=== PATIENT | male | born 1960 | race Caucasian/White ===

== ENCOUNTER 2024-07-22 16:42 | Inpatient (IN) | payer MEDICARE, SELFPAY ==
[2024-07-22] VITALS (12 sets, daily range): BP systolic 177–200; BP diastolic 95–123; PULSE 61–103; RESP 20–32; TEMP 37.2–37.7; O2SAT 93–98; BMI 25.8
--- NOTE | 2024-07-22 16:44 | ECG_ITS ---
APPROVED REPORT Exam: Resting ECG HR:79 bpm ECG Measurements Heart Rate 79 AXES FL 145 P 83 QRSd 93 QRS 90 QT 348 T 26 QTc 383 Conclusion Sinus rhythm No acute ischemic change Electronically signed by : ROCIO FLORES, 07/24/2024 12:20:44
--- NOTE | 2024-07-22 16:55 | CT_ITS ---
PROCEDURE INFORMATION: Exam: CTA Neck With Contrast Exam date and time: 07/22/2024 4:59 PM Age: 64 years old Clinical indication: Speech disturbance; Additional info: Stroke alert slurred speech TECHNIQUE: Imaging protocol: Computed tomographic angiography of the neck with contrast. Exam focused on the cervical segments of the vasculature. 3D rendering (Not supervised by radiologist): MIP and/or 3D reconstructed images were created by the technologist. Radiation optimization: All CT scans at this facility use at least one of these dose optimization techniques: automated exposure control; mA and/or kV adjustment per patient size (includes targeted exams where dose is matched to clinical indication); or iterative reconstruction. Contrast material: ISOVUE 370; Contrast volume: 80 ml; Contrast route: INTRAVENOUS (IV); COMPARISON: CT ANGIO NECK 07/22/2024 4:59 PM FINDINGS: Right common carotid artery: No stenosis. No dissection or occlusion. Right internal carotid artery: No stenosis of the extracranial segment. No dissection or occlusion. Right external carotid artery: No occlusion or stenosis of the origin. Left common carotid artery: No stenosis. No dissection or occlusion. Left internal carotid artery: No stenosis of the extracranial segment. No dissection or occlusion. Left external carotid artery: No occlusion or stenosis of the origin. Right vertebral artery: No stenosis. No dissection or occlusion. Left vertebral artery: No stenosis. No dissection or occlusion. Soft tissues: Normal. No significant soft tissue swelling. Bones/joints: No acute fracture. IMPRESSION: No hemodynamically significant extracranial cerebrovascular stenosis or occlusion. REFERENCES: NASCET CRITERIA. The degree of stenosis in the cervical segment of the internal carotid artery is based on NASCET criteria. Normal is no stenosis. Mild is less than 50% stenosis. Moderate is 50-69% stenosis. Severe is 70% to 99% stenosis. Total occlusion is no detectable patent lumen.
--- NOTE | 2024-07-22 16:57 | CT_ITS ---
PROCEDURE INFORMATION: Exam: CT Head Without Contrast Exam date and time: 07/22/2024 4:57 PM Age: 64 years old Clinical indication: Stroke-like symptoms; Altered mental status/memory loss TECHNIQUE: Imaging protocol: Computed tomography of the head without contrast. Radiation optimization: All CT scans at this facility use at least one of these dose optimization techniques: automated exposure control; mA and/or kV adjustment per patient size (includes targeted exams where dose is matched to clinical indication); or iterative reconstruction. Other technique: STROKE PROTOCOL was implemented. COMPARISON: No relevant prior studies available. FINDINGS: Brain: Remote lacunar infarct left basal ganglia. Periventricular and subcortical small vessel ischemic changes appear chronic. Mild atrophy associated. No acute hemorrhage, mass effect, midline shift, or extra-axial fluid collection. Cerebral ventricles: No ventriculomegaly. Paranasal sinuses: Visualized sinuses are unremarkable. No fluid levels. Mastoid air cells: Visualized mastoid air cells are well aerated. Bones: Unremarkable. No acute fracture. Soft tissues: Unremarkable. IMPRESSION: 1. Remote lacunar infarct left basal ganglia. 2. Mild cerebral atrophy. ASSESSMENT: ASPECTS ([facility] Stroke Program Early CT Score) is 10.
--- NOTE | 2024-07-22 16:57 | CT_ITS ---
PROCEDURE INFORMATION: Exam: CTA Head With Contrast, Arteriography Exam date and time: 07/22/2024 4:59 PM Age: 64 years old Clinical indication: Memory loss; Additional info: Stroke, AMS, slurredspeech TECHNIQUE: Imaging protocol: Computed tomographic angiography of the head with contrast. Exam focused on the arteries. 3D rendering (Not supervised by radiologist): MIP and/or 3D reconstructed images were created by the technologist. Radiation optimization: All CT scans at this facility use at least one of these dose optimization techniques: automated exposure control; mA and/or kV adjustment per patient size (includes targeted exams where dose is matched to clinical indication); or iterative reconstruction. Contrast material: ISOVUE 370; Contrast volume: 80 ml; Contrast route: INTRAVENOUS (IV); COMPARISON: CT HEAD/BRAIN WO CON 07/22/2024 4:57 PM FINDINGS: ANTERIOR CIRCULATION: Right internal carotid artery: Intracranial segment is patent with no significant stenosis. No aneurysm. Right middle cerebral artery: No occlusion or significant stenosis. No aneurysm. Right anterior cerebral artery: No occlusion or significant stenosis. No aneurysm. Left internal carotid artery: Intracranial segment is patent with no significant stenosis. No aneurysm. Left middle cerebral artery: No occlusion or significant stenosis. No aneurysm. Left anterior cerebral artery: No occlusion or significant stenosis. No aneurysm. POSTERIOR CIRCULATION: Right vertebral artery: No occlusion or significant stenosis. No aneurysm. Left vertebral artery: No occlusion or significant stenosis. No aneurysm. Basilar artery: No occlusion or significant stenosis. No aneurysm. Right posterior cerebral artery: No occlusion or significant stenosis. No aneurysm. Left posterior cerebral artery: No occlusion or significant stenosis. No aneurysm. Brain: No definite mass, mass effect, or midline shift. Cerebral ventricles: No ventriculomegaly. Bones/joints: Unremarkable. No acute fracture. Soft tissues: Unremarkable. IMPRESSION: No large vessel stenosis or occlusion.
[2024-07-22] MEDS: IOPAMIDOL-370 (76%);100ML BOTTLE 80 ML IV (17:09)
[2024-07-22] MEDS: 0.9 % SODIUM CHLORIDE 50 ML VIAL 10 ML IV (17:10)
[2024-07-22] MEDS: SODIUM CHLORIDE 0.9% 10ML SYR (RAD ONLY) 10 ML IV (17:10)
--- NOTE | 2024-07-22 17:19 | [facility].EDCP ---
Discharge Plan Disposition Patient Disposition: Admitted Condition: Fair Clinical Impressions Clinical Impression: Asthenia, Elevated troponin I level, Elevated brain natriuretic peptide (BNP) level, [place] (acute kidney injury) Discharge ED Provider: Pablo Lugo HPI <BETO Preciado - Last Filed: 07/22/24 22:07> General Chief Complaint: Neuro Symptoms/Deficit Stated Complaint: Poss CVA Time Seen by Provider: 07/22/24 17:19 History of Present Illness HPI narrative: Patient presents for evaluation of weakness. According to patient's he has had a progressive decline going on for the past year primarily with a shuffling gait and multiple falls. Over the last week he has fallen more more to the point where he is too weak to get out of bed. He is unable to stand unassisted currently. 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 Patient himself is oriented to person place and circumstance and reports weakness but denies chest pain shortness of breath fever chills hemoptysis hematochezia melena nausea vomiting diarrhea. Related Data Home Medications ?Medication ?Instructions ?Recorded ?Confirmed No Known Home Medications 07/22/24 07/22/24 Allergies Allergy/AdvReac Type Severity Reaction Status Date / Time No Known Allergies Allergy Verified 07/22/24 16:55 PFSH <BETO Preciado - Last Filed: 07/22/24 22:07> PFS Disclaimer: The information contained in this section may have been updated after the patient was seen, as this information can be updated by other users. Medical History (Updated 07/23/24 @ 16:07 by Octavio Jose MD) No significant past medical history Social History (Updated 07/22/24 @ 22:36 by Arely Fuller RN) Smoking Status: Current every day smoker tobacco type: cigarettes packs per day: 1 years smoked: 35 alcohol intake: never current occupational status: unemployed Travel in the last 8 weeks: None household members: spouse marital status: <BETO Preciado Last Filed: 07/22/24 22:07> ROS Obtained: Yes Systems reviewed as appropriate & no additional complaints except as documented Physical Exam <BETO Preciado Last Filed: 07/22/24 22:07> General General appearance: alert and in no apparent distress Respiratory Respiratory exam: Present normal lung sounds bilaterally Cardiovascular Cardiovascular exam: Present regular rate and +S2 Neurological Exam Neurological exam: Present alert, oriented X3 and CN II-XII intact; Absent motor sensory deficit HEART Score <BETO Preciado - Last Filed: 07/22/24 22:07> HEART Score HEART Score assessment performed?: Yes History (anamnesis): Slightly suspicious ECG: Normal Age: >65 years Risk factors: 1-2 risk factors Troponin: 1-3x normal limit HEART Score: 4 <Pablo Lugo MD - Last Filed: 07/24/24 07:18> HEART Score HEART Score: 4 Critical Care <BETO Preciado - Last Filed: 07/22/24 22:07> Critical Care Time Critical Care Time: Yes Attestation: On 07/22/24, the high probability of a clinically significant, sudden or life threatening deterioration of the following system(s) required my full and direct attention, intervention and personal management. The time I documented below is in addition to time spent performing reported procedures but includes the following listed in this critical care notation. Total Time Total Critical Care Time: 35 Medical Decision Making <BETO Preciado - Last Filed: 07/22/24 22:07> Medical Records Medical records reviewed: Yes I reviewed the patient's medical records. Herbert Inquiry Pt receiving controlled substance: No Vital Signs Vital Signs: 07/22/24 16:45 07/22/24 17:10 07/22/24 17:11 Temperature 99.9 F H Temperature Source Oral Pulse Rate 70 61 Pulse Rate [Right] 95 H Respiratory Rate 20 22 Blood Pressure 199/106 H 198/95 H Blood Pressure [Right Arm] 200/116 H Blood Pressure Mean [Right Arm] 144 Blood Pressure Source Blood Pressure Source [Right Arm] Manual Cuff/ Auscultation Blood Pressure Position 02 Sat by Pulse Oximetry 96 95 96 Oxygen Delivery Method Room Air Room Air Room Air 07/22/24 17:30 07/22/24 18:00 07/22/24 18:30 Temperature Temperature Source Pulse Rate 99 H 99 H 103 H Pulse Rate [Right] Respiratory Rate 29 H 29 H 28 H Blood Pressure 189/119 H 187/123 H 183/118 H Blood Pressure [Right Arm] Blood Pressure Mean [Right Arm] Blood Pressure Source Blood Pressure Source [Right Arm] Blood Pressure Position 02 Sat by Pulse Oximetry 95 94 L 95 Oxygen Delivery Method Room Air 07/22/24 19:00 07/22/24 19:30 07/22/24 20:00 Temperature Temperature Source Pulse Rate 67 102 H 62 Pulse Rate [Right] Respiratory Rate 32 H 20 30 H Blood Pressure 192/108 H 186/120 H 177/103 H Blood Pressure [Right Arm] Blood Pressure Mean [Right Arm] Blood Pressure Source Blood Pressure Source [Right Arm] Blood Pressure Position 02 Sat by Pulse Oximetry 93 L 96 98 Oxygen Delivery Method 07/22/24 20:07 07/22/24 20:15 Temperature 98.9 F Temperature Source Oral Pulse Rate 67 Pulse Rate [Right] 62 Respiratory Rate 20 Blood Pressure 177/103 H Blood Pressure [Right Arm] Blood Pressure Mean [Right Arm] Blood Pressure Source Automatic Cuff Blood Pressure Source [Right Arm] Blood Pressure Position Supine 02 Sat by Pulse Oximetry Oxygen Delivery Method Room Air Room Air Lab Data Lab results reviewed: Yes I reviewed the patient's lab results. Labs: Lab Results 07/22/24 16:50: WBC 5.4, RBC 6.23 H, Hgb 18.6 H, Hct 53.7 H, MCV 86.2, MCH 29.9, MCHC 34.6, RDW 14.5, Plt Count 119 L, MPV 11.9 H, Neut % (Auto) 75.1, Lymph % (Auto) 9.5 L, Davison % (Auto) 14.6 H, Eos % (Auto) 0.0 L, Baso % (Auto) 0.4, Neut # (Auto) 4.0, Lymph # (Auto) 0.5 L, Davison # (Auto) 0.8, Eos # (Auto) 0.0, Baso # (Auto) 0.0, ESR 1, PT 13.3 H, INR 1.21 H, Sodium 139, Potassium 3.9, Chloride 98, Carbon Dioxide 28, Anion Gap 16.9 H, BUN 24 H, Creatinine 1.60 H, Estimated GFR 43 L, Est GFR ( Amer) 53 L, Glucose 95, Calcium 9.6, Phosphorus 2.6, Magnesium 2.2, Total Bilirubin 1.0, AST 116 H, ALT 60, Alkaline Phosphatase 58, Total Creatine Kinase 4494 H*, Troponin I 0.05 H, C-Reactive Protein 69.0 H, NT-Pro-B Natriuret Pep 1990 H, Total Protein 7.7, Albumin 4.8, Globulin 2.9, Albumin/Globulin Ratio 1.7, Vitamin B12 381, Procalcitonin 0.552, TSH 1.27, Free T4 Index 2.2 L, Thyroxine (T4) 6.4, T3 Uptake 35, HCV Ab FELICITA w/Rflx PCR Qn Negative, HIV Ag/Ab Combo Qual Negative 07/22/24 17:38: Chlamy pneumoniae PCR Not detected, Adenovirus (PCR) Not detected, B. pertussis DNA (PCR) Not detected, Coronavirus OC43 (PCR) Not detected, Coronavirus HKU1 (PCR) Not detected, Coronavirus 229E (PCR) Not detected, SARS-CoV-2 (PCR) Not detected, Coronavirus NL63 (PCR) Not detected, Human Metapneumovir PCR Not detected, Influenza A (H1) PCR Not detected, Influ A (H1N1/09) PCR Not detected, Influenza A (H3) PCR Not detected, Influenza Type A (PCR) Not detected, Influenza Type B (PCR) Not detected, M. pneumoniae (PCR) Not detected, Parainfluenza 1 (PCR) Not detected, Parainfluenza 2 (PCR) Not detected, Parainfluenza 3 (PCR) Not detected, Parainfluenza 4 (PCR) Not detected, RSV (PCR) Not detected, Entero/Rhino (PCR) Not detected 07/22/24 18:56: Ammonia < 9 L 07/22/24 19:07: Urine Color Yellow, Urine Appearance Slightly cloudy, Urine pH 5.5, Ur Specific Lawrence 1.025, Urine Protein 30, Urine Glucose (UA) Negative, Urine Ketones Negative, Urine Blood Moderate, Urine Nitrate Negative, Urine Bilirubin Negative, Urine Urobilinogen 1.0, Ur Leukocyte Esterase Negative, Urine RBC None, Urine WBC Occasional, Ur Squamous Epith Cells Occasional, Urine Bacteria 1+, Ur Random Urea Nitrogn 1365, Urine Creatinine 263, Urine Sodium 56.0, Urine Total Protein 35.0 H 07/22/24 19:28: Urine Color Yellow, Urine Appearance Clear, Urine pH 5.5, Ur Specific Lawrence 1.020, Urine Protein 30, Urine Glucose (UA) Negative, Urine Ketones Negative, Urine Blood Moderate, Urine Nitrate Negative, Urine Bilirubin Negative, Urine Urobilinogen 2.0, Ur Leukocyte Esterase Negative, Urine RBC None, Urine WBC 3-5, Ur Squamous Epith Cells 3-5, Urine Bacteria 1+, Hyaline Casts 3-5, Fine Granular Casts Occasional, Urine Mucus 1+ 07/22/24 21:21: Folate 7.72 07/23/24 01:08: Troponin I 0.06 H 07/23/24 06:40: WBC 4.1 L, RBC 5.75, Hgb 16.8, Hct 48.5, MCV 84.3, MCH 29.2, MCHC 34.6, RDW 14.2, Plt Count 98 L, MPV 10.8 H, Neut % (Auto) 73.8, Lymph % (Auto) 9.8 L, Davison % (Auto) 15.5 H, Eos % (Auto) 0.0 L, Baso % (Auto) 0.7, Neut # (Auto) 3.0, Lymph # (Auto) 0.4 L, Davison # (Auto) 0.6, Eos # (Auto) 0.0, Baso # (Auto) 0.0, Retic Count (auto) 0.8 L, Sodium 135 L, Potassium 3.8, Chloride 104, Carbon Dioxide 22, Anion Gap 12.8, BUN 19, Creatinine 1.10 D, Estimated Creat Clear 74, Estimated GFR 67, Est GFR ( Amer) 81 D, Glucose 116 H D, Hemoglobin A1c 5.4, Calcium 9.1, Iron 29 L, TIBC 227 L, Iron Saturation 12.38825 L, Ferritin 3360 H, Troponin I 0.05 H, Triglycerides 129, Cholesterol 119 L, LDL Cholesterol Direct 63.80 L, VLDL Cholesterol 26, HDL Cholesterol 25 L, Cholesterol/HDL Ratio 4.8 H, Vitamin B12 358, Folate 7.84 07/23/24 07:20: Total Creatine Kinase 2380 H* D 07/23/24 06:40 07/23/24 06:40 Response Orders (Tests/Meds): ED MEDICATIONS Generic Name Dose Route Start Last Admin Trade Name Freq PRN Reason Stop Dose Admin Acetaminophen 650 mg 07/22/24 20:23 Acetaminophen 325mg Tab PO 08/21/24 20:22 Q4HP PRN Fever or Mild Pain (1-3) Aspirin 81 mg 07/23/24 09:00 07/23/24 08:33 Aspirin Ec 81mg Tablet PO 08/22/24 08:59 81 mg DAILY YEIMY Administration Atorvastatin Calcium 40 mg 07/23/24 21:00 07/23/24 20:16 Atorvastatin 40mg Tablet PO 08/22/24 20:59 40 mg HS YEIMY Administration Clopidogrel Bisulfate 75 mg 07/23/24 13:55 07/23/24 14:37 Clopidogrel 75mg Tab PO 08/22/24 13:54 75 mg DAILY YEIMY Administration Lactated Ringer's 1,000 mls @ 100 mls/hr 07/22/24 20:30 07/24/24 03:34 Lactated Ringer's 1000 Ml Bag IV 08/21/24 20:29 100 mls/hr .Q10H YEIMY Administration Irbesartan 75 mg 07/23/24 14:00 07/23/24 14:37 Irbesartan 75mg Tablet PO 08/22/24 13:59 75 mg DAILY YEIMY Administration Nicotine 21 mg 07/22/24 20:23 07/23/24 13:54 Nicotine 21mg/24hr Patch TD 08/21/24 20:22 21 mg DAILYP PRN Administration Nicotine Cravings Ondansetron HCl 4 mg 07/22/24 20:23 Ondansetron 4mg/2ml Vial IV 08/21/24 20:22 Q8HP PRN Nausea Sodium Chloride 10 ml 07/22/24 20:23 Sodium Chloride 0.9% 10ml Flush Syringe IV 08/21/24 20:22 NEEDED PRN Maintain IV Site Discontinued Medications Generic Name Dose Route Start Last Admin Trade Name Freq PRN Reason Stop Dose Admin Aspirin 325 mg 07/22/24 19:59 07/22/24 20:07 Aspirin 325mg Tablet PO 07/22/24 20:00 325 mg ONCE ONE Administration Clopidogrel Bisulfate 300 mg 07/22/24 19:59 07/22/24 20:07 Clopidogrel 300mg Tablet PO 07/22/24 20:00 300 mg ONCE ONE Administration Heparin Sodium (Porcine) 5,000 unit 07/22/24 21:00 07/23/24 12:15 Heparin Sodium 5,000 Unit/Ml Vial SUBCUT 08/21/24 20:59 5,000 unit TID YEIMY Administration Sodium Chloride 1,000 mls @ 999 mls/hr 07/22/24 17:23 07/22/24 18:04 Sod Chlor 0.9% 1000ml Bag IV 07/22/24 18:23 999 mls/hr .Q1H1M ONE Administration Iopamidol 80 ml 07/22/24 17:07 07/22/24 17:09 Iopamidol-370 (76%);100ml Bottle IV 07/22/24 17:08 80 ml ONCE ONE Administration Sodium Chloride 10 ml 07/22/24 17:10 07/22/24 17:10 0.9 % Sodium Chloride 50 Ml Vial IV 07/22/24 17:11 10 ml ONCE ONE Administration Sodium Chloride 10 ml 07/22/24 17:10 07/22/24 17:10 Sodium Chloride 0.9% 10ml Syr (Rad Only) IV 08/21/24 17:09 10 ml NEEDED PRN Administration Maintain IV Site ORDERS Category Date Time Status CT angio head Stat Cat Scan 07/22/24 16:[address] angio neck Stat Cat Scan 07/22/24 16:[address] head/brain wo con Stat Cat Scan 07/22/24 16:57 Completed Consult to Case Management [CONS] Routine Cons 07/22/24 20:18 Active Chest XR -- portable [XR chest portable] Stat Exams 07/22/24 20:17 Completed Ammonia Stat Lab 07/22/24 18:56 Completed BNP [NT Pro Brain Natriuretic Pep.] Stat Lab 07/22/24 16:50 Completed Basic Metabolic Panel AMLAB Lab 07/23/24 06:40 Completed Basic Metabolic Panel AMLAB Lab 07/24/24 06:50 Received Basic Metabolic Panel [facility]AB Lab 07/25/24 06:00 Ordered Basic Metabolic Panel AMLAB Lab 07/26/24 06:00 Ordered Basic Metabolic Panel AMLAB Lab 07/27/24 06:00 Ordered Basic Metabolic Panel AMLAB Lab 07/28/24 06:00 Ordered Basic Metabolic Panel AMLAB Lab 07/29/24 06:00 Ordered Basic Metabolic Panel AMLAB Lab 07/30/24 06:00 Ordered Basic Metabolic Panel AMLAB Lab 07/31/24 06:00 Ordered Basic Metabolic Panel [facility] Lab 08/01/24 06:00 Ordered CBC w/Auto Diff [Complete Blood Count Auto Diff] Stat Lab 07/22/24 16:50 Completed CK [Creatine Kinase] Stat Lab 07/22/24 16:50 Completed CMP [Comprehensive Metabolic Panel] Stat Lab 07/22/24 16:50 Completed CRP [C-Reactive Protein] Stat Lab 07/22/24 16:50 Completed Complete Blood Count Auto Diff AML[facility] Lab 07/23/24 06:40 Completed Complete Blood Count Auto Diff [facility] Lab 07/24/24 06:50 Received Complete Blood Count Auto Diff [facility] Lab 07/25/24 06:00 Ordered Complete Blood Count Auto Diff AML[facility] Lab 07/26/24 06:00 Ordered Complete Blood Count Auto Diff [facility] Lab 07/27/24 06:00 Ordered Complete Blood Count Auto Diff [facility] Lab 07/28/24 06:00 Ordered Complete Blood Count Auto Diff AML[facility] Lab 07/29/24 06:00 Ordered Complete Blood Count Auto Diff AML[facility] Lab 07/30/24 06:00 Ordered Complete Blood Count Auto Diff [facility] Lab 07/31/24 06:00 Ordered Complete Blood Count Auto Diff [facility] Lab 08/01/24 06:00 Ordered Creatinine,Urine Random Routine Lab 07/22/24 19:07 Completed ESR [Erythrocyte Sedimentation Rate] Stat Lab 07/22/24 16:50 Completed Ferritin AML[facility] Lab 07/23/24 06:40 Completed Folate Routine Lab 07/23/24 06:40 Completed Folate Stat Lab 07/22/24 21:21 Completed Full Resp Panel w/COVID ([facility]) Routine Lab 07/22/24 17:38 Completed HIV Combo Stat Lab 07/22/24 16:50 Completed Hemoglobin A1C Routine Lab 07/23/24 06:40 Completed Hepatitis C Ab Qual. W/ RFX Stat Lab 07/22/24 16:50 Completed INR [Prothrombin Time INR] Stat Lab 07/22/24 16:50 Completed Iron and TIBC AML[facility] Lab 07/23/24 06:40 Completed Lipid Panel Routine Lab 07/23/24 06:40 Completed Magnesium Stat Lab 07/22/24 16:50 Completed Phosphorous Stat Lab 07/22/24 16:50 Completed Procalcitonin Stat Lab 07/22/24 16:50 Completed Reticulocyte % (Auto) AMLAB Lab 07/23/24 06:40 Completed Sodium,Urine Random Routine Lab 07/22/24 19:07 Completed Thyroid Panel Stat Lab 07/22/24 16:50 Completed Total Protein,Urine Random Routine Lab 07/22/24 19:07 Completed Trop I [Troponin I] Stat Lab 07/22/24 16:50 Completed Troponin I Q6H Lab 07/23/24 01:08 Completed Troponin I Q6H Lab 07/23/24 06:40 Completed Troponin I Q6H Lab 07/23/24 17:08 Completed UA [Urinalysis and Microscopic] Stat Lab 07/22/24 19:07 Completed UA [Urinalysis and Microscopic] Stat Lab 07/22/24 19:28 Completed Urea Nitrogen,Urine Random Routine Lab 07/22/24 19:07 Completed Urine Albumin/Creat Ratio Routine Lab 07/22/24 19:28 Received Vitamin B12 Routine Lab 07/23/24 06:40 Completed Vitamin B12 Stat Lab 07/22/24 16:50 Completed Zinc AMLAB Lab 07/24/24 06:50 Received Renal US [US Kidney] Routine Ultrasound 07/23/24 08:00 Completed CA echo doppler complete Routine Y 07/23/24 08:00 Completed Tissue Perfus/Sepsis Re-Eval Sepsis Re-Evaluation Performed: Yes Date Performed: 07/22/24 Time Performed: 19:00 [facility] Narrative Medical Decision Narrative: In summary patient is a 4-year-old male who presents to the emergency department for evaluation of asthenia and too weak to walk. Patient is initially hypertensive with a blood pressure of 200/116 pulse 95 with normal sinus rhythm on bedside monitor breathing 20 times a minute satting at 96% on room air upon arrival, with a temperature of 99.9. Physical exam is remarkable for global weakness however patient has no focal neurologic deficits. Cranial nerves II through XII intact grossly to exam. Patient appears oriented to person place and circumstance. Glascow coma score is currently 15. He has no loss of his visual mittal he has weakness to [id number] but is able to complete. His bilateral lower extremities drift toward the bed but do not drop to the bed. Motor and sensory are intact transmission inspector strengths are 5 out of 5 patient moves all 4 extremities.. Differential diagnosis includes stroke versus ACS versus occult infection versus organic brain disease versus space-occupying lesion versus electrolyte abnormality etc. Initial workup will be conducted with stroke alert stroke protocol which includes CT imaging CTA of his head and neck twelve-lead EKG hematologic labs urinalysis etc. Initial interventions include crystalloid bolus aspirin Plavix. Initial workup reviewed by me and his hematologic labs are significant for white count of 5.4 hemoglobin hematocrit 18.6 and 53.7 respectively absolute neutrophil count of 4.0 INR is 1.21, patient has anion gap of 16.9 and a BUN of 24 creatinine 1.6 and GFR 43 and AST of 116 and ammonia of less than 9 and a troponin of 0.05 and CRP of 69 and NT proBNP of 1990 with TSH of 1.27 procalcitonin is 0.552 urinalysis that shows moderate amount of blood nitrite negative leukocyte Estrace negative microscopic exam shows 3-5 white cells 3-5 epithelial cells no red blood cells 1+ bacteria and his full respiratory panel is negative for all organisms tested. 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 Upon repeat evaluation patient remains too weak to walk. Given this I had interactive discussion with hospital medicine regarding patient presentation DSOUZA and findings as well as patient management and he will be admitted for further evaluation and care. <Pablo Lugo MD - Last Filed: 07/24/24 07:18> Vital Signs Vital Signs: 07/22/24 16:45 07/22/24 17:10 07/22/24 17:11 Temperature 99.9 F H Temperature Source Oral Pulse Rate 70 61 Pulse Rate [Right] 95 H Respiratory Rate 20 22 Blood Pressure 199/106 H 198/95 H Blood Pressure [Right Arm] 200/116 H Blood Pressure Mean [Right Arm] 144 Blood Pressure Source Blood Pressure Source [Right Arm] Manual Cuff/ Auscultation Blood Pressure Position 02 Sat by Pulse Oximetry 96 95 96 Oxygen Delivery Method Room Air Room Air Room Air 07/22/24 17:30 07/22/24 18:00 07/22/24 18:30 Temperature Temperature Source Pulse Rate 99 H 99 H 103 H Pulse Rate [Right] Respiratory Rate 29 H 29 H 28 H Blood Pressure 189/119 H 187/123 H 183/118 H Blood Pressure [Right Arm] Blood Pressure Mean [Right Arm] Blood Pressure Source Blood Pressure Source [Right Arm] Blood Pressure Position 02 Sat by Pulse Oximetry 95 94 L 95 Oxygen Delivery Method Room Air 07/22/24 19:00 07/22/24 19:30 07/22/24 20:00 Temperature Temperature Source Pulse Rate 67 102 H 62 Pulse Rate [Right] Respiratory Rate 32 H 20 30 H Blood Pressure 192/108 H 186/120 H 177/103 H Blood Pressure [Right Arm] Blood Pressure Mean [Right Arm] Blood Pressure Source Blood Pressure Source [Right Arm] Blood Pressure Position 02 Sat by Pulse Oximetry 93 L 96 98 Oxygen Delivery Method 07/22/24 20:07 07/22/24 20:15 Temperature 98.9 F Temperature Source Oral Pulse Rate 67 Pulse Rate [Right] 62 Respiratory Rate 20 Blood Pressure 177/103 H Blood Pressure [Right Arm] Blood Pressure Mean [Right Arm] Blood Pressure Source Automatic Cuff Blood Pressure Source [Right Arm] Blood Pressure Position Supine 02 Sat by Pulse Oximetry Oxygen Delivery Method Room Air Room Air Lab Data Labs: Lab Results 07/22/24 16:50: WBC 5.4, RBC 6.23 H, Hgb 18.6 H, Hct 53.7 H, MCV 86.2, MCH 29.9, MCHC 34.6, RDW 14.5, Plt Count 119 L, MPV 11.9 H, Neut % (Auto) 75.1, Lymph % (Auto) 9.5 L, Davison % (Auto) 14.6 H, Eos % (Auto) 0.0 L, Baso % (Auto) 0.4, Neut # (Auto) 4.0, Lymph # (Auto) 0.5 L, Davison # (Auto) 0.8, Eos # (Auto) 0.0, Baso # (Auto) 0.0, ESR 1, PT 13.3 H, INR 1.21 H, Sodium 139, Potassium 3.9, Chloride 98, Carbon Dioxide 28, Anion Gap 16.9 H, BUN 24 H, Creatinine 1.60 H, Estimated GFR 43 L, Est GFR ( Amer) 53 L, Glucose 95, Calcium 9.6, Phosphorus 2.6, Magnesium 2.2, Total Bilirubin 1.0, AST 116 H, ALT 60, Alkaline Phosphatase 58, Total Creatine Kinase 4494 H*, Troponin I 0.05 H, C-Reactive Protein 69.0 H, NT-Pro-B Natriuret Pep 1990 H, Total Protein 7.7, Albumin 4.8, Globulin 2.9, Albumin/Globulin Ratio 1.7, Vitamin B12 381, Procalcitonin 0.552, TSH 1.27, Free T4 Index 2.2 L, Thyroxine (T4) 6.4, T3 Uptake 35, HCV Ab FELICITA w/Rflx PCR Qn Negative, HIV Ag/Ab Combo Qual Negative 07/22/24 17:38: Chlamy pneumoniae PCR Not detected, Adenovirus (PCR) Not detected, B. pertussis DNA (PCR) Not detected, Coronavirus OC43 (PCR) Not detected, Coronavirus HKU1 (PCR) Not detected, Coronavirus 229E (PCR) Not detected, SARS-CoV-2 (PCR) Not detected, Coronavirus NL63 (PCR) Not detected, Human Metapneumovir PCR Not detected, Influenza A (H1) PCR Not detected, Influ A (H1N1/09) PCR Not detected, Influenza A (H3) PCR Not detected, Influenza Type A (PCR) Not detected, Influenza Type B (PCR) Not detected, M. pneumoniae (PCR) Not detected, Parainfluenza 1 (PCR) Not detected, Parainfluenza 2 (PCR) Not detected, Parainfluenza 3 (PCR) Not detected, Parainfluenza 4 (PCR) Not detected, RSV (PCR) Not detected, Entero/Rhino (PCR) Not detected 07/22/24 18:56: Ammonia < 9 L 07/22/24 19:07: Urine Color Yellow, Urine Appearance Slightly cloudy, Urine pH 5.5, Ur Specific Lawrence 1.025, Urine Protein 30, Urine Glucose (UA) Negative, Urine Ketones Negative, Urine Blood Moderate, Urine Nitrate Negative, Urine Bilirubin Negative, Urine Urobilinogen 1.0, Ur Leukocyte Esterase Negative, Urine RBC None, Urine WBC Occasional, Ur Squamous Epith Cells Occasional, Urine Bacteria 1+, Ur Random Urea Nitrogn 1365, Urine Creatinine 263, Urine Sodium 56.0, Urine Total Protein 35.0 H 07/22/24 19:28: Urine Color Yellow, Urine Appearance Clear, Urine pH 5.5, Ur Specific Lawrence 1.020, Urine Protein 30, Urine Glucose (UA) Negative, Urine Ketones Negative, Urine Blood Moderate, Urine Nitrate Negative, Urine Bilirubin Negative, Urine Urobilinogen 2.0, Ur Leukocyte Esterase Negative, Urine RBC None, Urine WBC 3-5, Ur Squamous Epith Cells 3-5, Urine Bacteria 1+, Hyaline Casts 3-5, Fine Granular Casts Occasional, Urine Mucus 1+ 07/22/24 21:21: Folate 7.72 07/23/24 01:08: Troponin I 0.06 H 07/23/24 06:40: WBC 4.1 L, RBC 5.75, Hgb 16.8, Hct 48.5, MCV 84.3, MCH 29.2, MCHC 34.6, RDW 14.2, Plt Count 98 L, MPV 10.8 H, Neut % (Auto) 73.8, Lymph % (Auto) 9.8 L, Davison % (Auto) 15.5 H, Eos % (Auto) 0.0 L, Baso % (Auto) 0.7, Neut # (Auto) 3.0, Lymph # (Auto) 0.4 L, Davison # (Auto) 0.6, Eos # (Auto) 0.0, Baso # (Auto) 0.0, Retic Count (auto) 0.8 L, Sodium 135 L, Potassium 3.8, Chloride 104, Carbon Dioxide 22, Anion Gap 12.8, BUN 19, Creatinine 1.10 D, Estimated Creat Clear 74, Estimated GFR 67, Est GFR ( Amer) 81 D, Glucose 116 H D, Hemoglobin A1c 5.4, Calcium 9.1, Iron 29 L, TIBC 227 L, Iron Saturation 12.04945 L, Ferritin 3360 H, Troponin I 0.05 H, Triglycerides 129, Cholesterol 119 L, LDL Cholesterol Direct 63.80 L, VLDL Cholesterol 26, HDL Cholesterol 25 L, Cholesterol/HDL Ratio 4.8 H, Vitamin B12 358, Folate 7.84 07/23/24 07:20: Total Creatine Kinase 2380 H* D Response Orders (Tests/Meds): ED MEDICATIONS Generic Name Dose Route Start Last Admin Trade Name Enriqueq PRN Reason Stop Dose Admin Acetaminophen 650 mg 07/22/24 20:23 Acetaminophen 325mg Tab PO 08/21/24 20:22 Q4HP PRN Fever or Mild Pain (1-3) Aspirin 81 mg 07/23/24 09:00 07/23/24 08:33 Aspirin Ec 81mg Tablet PO 08/22/24 08:59 81 mg DAILY YEIMY Administration Atorvastatin Calcium 40 mg 07/23/24 21:00 07/23/24 20:16 Atorvastatin 40mg Tablet PO 08/22/24 20:59 40 mg HS YEIMY Administration Clopidogrel Bisulfate 75 mg 07/23/24 13:55 07/23/24 14:37 Clopidogrel 75mg Tab PO 08/22/24 13:54 75 mg DAILY YEIMY Administration Lactated Ringer's 1,000 mls @ 100 mls/hr 07/22/24 20:30 07/24/24 03:34 Lactated Ringer's 1000 Ml Bag IV 08/21/24 20:29 100 mls/hr .Q10H YEIMY Administration Irbesartan 75 mg 07/23/24 14:00 07/23/24 14:37 Irbesartan 75mg Tablet PO 08/22/24 13:59 75 mg DAILY YEIMY Administration Nicotine 21 mg 07/22/24 20:23 07/23/24 13:54 Nicotine 21mg/24hr Patch TD 08/21/24 20:22 21 mg DAILYP PRN Administration Nicotine Cravings Ondansetron HCl 4 mg 07/22/24 20:23 Ondansetron 4mg/2ml Vial IV 08/21/24 20:22 Q8HP PRN Nausea Sodium Chloride 10 ml 07/22/24 20:23 Sodium Chloride 0.9% 10ml Flush Syringe IV 08/21/24 20:22 NEEDED PRN Maintain IV Site Discontinued Medications Generic Name Dose Route Start Last Admin Trade Name Freq PRN Reason Stop Dose Admin Aspirin 325 mg 07/22/24 19:59 07/22/24 20:07 Aspirin 325mg Tablet PO 07/22/24 20:00 325 mg ONCE ONE Administration Clopidogrel Bisulfate 300 mg 07/22/24 19:59 07/22/24 20:07 Clopidogrel 300mg Tablet PO 07/22/24 20:00 300 mg ONCE ONE Administration Heparin Sodium (Porcine) 5,000 unit 07/22/24 21:00 07/23/24 12:15 Heparin Sodium 5,000 Unit/Ml Vial SUBCUT 08/21/24 20:59 5,000 unit TID YEIMY Administration Sodium Chloride 1,000 mls @ 999 mls/hr 07/22/24 17:23 07/22/24 18:04 Sod Chlor 0.9% 1000ml Bag IV 07/22/24 18:23 999 mls/hr .Q1H1M ONE Administration Iopamidol 80 ml 07/22/24 17:07 07/22/24 17:09 Iopamidol-370 (76%);100ml Bottle IV 07/22/24 17:08 80 ml ONCE ONE Administration Sodium Chloride 10 ml 07/22/24 17:10 07/22/24 17:10 0.9 % Sodium Chloride 50 Ml Vial IV 07/22/24 17:11 10 ml ONCE ONE Administration Sodium Chloride 10 ml 07/22/24 17:10 07/22/24 17:10 Sodium Chloride 0.9% 10ml Syr (Rad Only) IV 08/21/24 17:09 10 ml NEEDED PRN Administration Maintain IV Site ORDERS Category Date Time Status CT angio head Stat Cat Scan 07/22/24 16:[address] angio neck Stat Cat Scan 07/22/24 16:[address] head/brain wo con Stat Cat Scan 07/22/24 16:57 Completed Consult to Case Management [CONS] Routine Cons 07/22/24 20:18 Active Chest XR -- portable [XR chest portable] Stat Exams 07/22/24 20:17 Completed Ammonia Stat Lab 07/22/24 18:56 Completed BNP [NT Pro Brain Natriuretic Pep.] Stat Lab 07/22/24 16:50 Completed Basic Metabolic Panel AMLAB Lab 07/23/24 06:40 Completed Basic Metabolic Panel AMLAB Lab 07/24/24 06:50 Received Basic Metabolic Panel AMLAB Lab 07/25/24 06:00 Ordered Basic Metabolic Panel AMLAB Lab 07/26/24 06:00 Ordered Basic Metabolic Panel AMLAB Lab 07/27/24 06:00 Ordered Basic Metabolic Panel AMLAB Lab 07/28/24 06:00 Ordered Basic Metabolic Panel AMLAB Lab 07/29/24 06:00 Ordered Basic Metabolic Panel AMLAB Lab 07/30/24 06:00 Ordered Basic Metabolic Panel AMLAB Lab 07/31/24 06:00 Ordered Basic Metabolic Panel AMLAB Lab 08/01/24 06:00 Ordered CBC w/Auto Diff [Complete Blood Count Auto Diff] Stat Lab 07/22/24 16:50 Completed CK [Creatine Kinase] Stat Lab 07/22/24 16:50 Completed CMP [Comprehensive Metabolic Panel] Stat Lab 07/22/24 16:50 Completed CRP [C-Reactive Protein] Stat Lab 07/22/24 16:50 Completed Complete Blood Count Auto Diff AMLAB Lab 07/23/24 06:40 Completed Complete Blood Count Auto Diff AMLAB Lab 07/24/24 06:50 Received Complete Blood Count Auto Diff AMLAB Lab 07/25/24 06:00 Ordered Complete Blood Count Auto Diff AMLAB Lab 07/26/24 06:00 Ordered Complete Blood Count Auto Diff AMLAB Lab 07/27/24 06:00 Ordered Complete Blood Count Auto Diff AMLAB Lab 07/28/24 06:00 Ordered Complete Blood Count Auto Diff AMLAB Lab 07/29/24 06:00 Ordered Complete Blood Count Auto Diff AMLAB Lab 07/30/24 06:00 Ordered Complete Blood Count Auto Diff AMLAB Lab 07/31/24 06:00 Ordered Complete Blood Count Auto Diff AMLAB Lab 08/01/24 06:00 Ordered Creatinine,Urine Random Routine Lab 07/22/24 19:07 Completed ESR [Erythrocyte Sedimentation Rate] Stat Lab 07/22/24 16:50 Completed Ferritin AMLAB Lab 07/23/24 06:40 Completed Folate Routine Lab 07/23/24 06:40 Completed Folate Stat Lab 07/22/24 21:21 Completed Full Resp Panel w/COVID ([facility]) Routine Lab 07/22/24 17:38 Completed HIV Combo Stat Lab 07/22/24 16:50 Completed Hemoglobin A1C Routine Lab 07/23/24 06:40 Completed Hepatitis C Ab Qual. W/ RFX Stat Lab 07/22/24 16:50 Completed INR [Prothrombin Time INR] Stat Lab 07/22/24 16:50 Completed Iron and TIBC AML[facility] Lab 07/23/24 06:40 Completed Lipid Panel Routine Lab 07/23/24 06:40 Completed Magnesium Stat Lab 07/22/24 16:50 Completed Phosphorous Stat Lab 07/22/24 16:50 Completed Procalcitonin Stat Lab 07/22/24 16:50 Completed Reticulocyte % (Auto) AMLAB Lab 07/23/24 06:40 Completed Sodium,Urine Random Routine Lab 07/22/24 19:07 Completed Thyroid Panel Stat Lab 07/22/24 16:50 Completed Total Protein,Urine Random Routine Lab 07/22/24 19:07 Completed Trop I [Troponin I] Stat Lab 07/22/24 16:50 Completed Troponin I Q6H Lab 07/23/24 01:08 Completed Troponin I Q6H Lab 07/23/24 06:40 Completed Troponin I Q6H Lab 07/23/24 17:08 Completed UA [Urinalysis and Microscopic] Stat Lab 07/22/24 19:07 Completed UA [Urinalysis and Microscopic] Stat Lab 07/22/24 19:28 Completed Urea Nitrogen,Urine Random Routine Lab 07/22/24 19:07 Completed Urine Albumin/Creat Ratio Routine Lab 07/22/24 19:28 Received Vitamin B12 Routine Lab 07/23/24 06:40 Completed Vitamin B12 Stat Lab 07/22/24 16:50 Completed Zinc AMLAB Lab 07/24/24 06:50 Received Renal US [US Kidney] Routine Ultrasound 07/23/24 08:00 Completed CA echo doppler complete Routine Y 07/23/24 08:00 Completed ECG Data Tracing #1: Attestation: I reviewed this ECG and interpreted as documented below: (Sinus rhythm [address] 145, QRS 93, QTc 383. Patient has Q waves, but no acute ischemic changes.) MDM Narrative Medical Decision Narrative: In summary patient is a 4-year-old male who presents to the emergency department for evaluation of asthenia and too weak to walk. Patient is initially hypertensive with a blood pressure of 200/116 pulse 95 with normal sinus rhythm on bedside monitor breathing 20 times a minute satting at 96% on room air upon arrival, with a temperature of 99.9. Physical exam is remarkable for global weakness however patient has no focal neurologic deficits. Cranial nerves II through XII intact grossly to exam. Patient appears oriented to person place and circumstance. Glascow coma score is currently 15. He has no loss of his visual mittal he has weakness to [id number] but is able to complete. His bilateral lower extremities drift toward the bed but do not drop to the bed. Motor and sensory are intact transmission inspector strengths are 5 out of 5 patient moves all 4 extremities.. Differential diagnosis includes stroke versus ACS versus occult infection versus organic brain disease versus space-occupying lesion versus electrolyte abnormality etc. Initial workup will be conducted with stroke alert stroke protocol which includes CT imaging CTA of his head and neck twelve-lead EKG hematologic labs urinalysis etc. Initial interventions include crystalloid bolus aspirin Plavix. Initial workup reviewed by me and his hematologic labs are significant for white count of 5.4 hemoglobin hematocrit 18.6 and 53.7 respectively absolute neutrophil count of 4.0 INR is 1.21, patient has anion gap of 16.9 and a BUN of 24 creatinine 1.6 and GFR 43 and AST of 116 and ammonia of less than 9 and a troponin of 0.05 and CRP of 69 and NT proBNP of 1990 with TSH of 1.27 procalcitonin is 0.552 urinalysis that shows moderate amount of blood nitrite negative leukocyte Estrace negative microscopic exam shows 3-5 white cells 3-5 epithelial cells no red blood cells 1+ bacteria and his full respiratory panel is negative for all organisms tested. 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 Upon repeat evaluation patient remains too weak to walk. Given this I had interactive discussion with hospital medicine regarding patient presentation DSOUZA and findings as well as patient management and he will be admitted for further evaluation and care. I was consulted by the JUANCHO, and we discussed the complexity of the problems being addressed. I approved the treatment and management plan for this patient's care in the Emergency Department, thus performing a substantive portion of the medical decision making. Pablo Lugo MD
[2024-07-22 17:37] LABS: Basophils % 0.4 % (0.1-2.0); Hematocrit 53.7 % (42.0-52.0); Lymphocytes # 0.5 K/mm3 (0.7-4.5); Lymphocytes % 9.5 % (10-50); Mean Corpuscular HGB Conc 34.6 g/dL (31.8-35.4); Mean Corpuscular Hemoglobin 29.9 pg (27.0-31.2); Mean Corpuscular Volume 86.2 fl (80-94); Mean Platelet Volume 11.9 fl (7.4-10.4); Monocytes # 0.8 K/mm3 (0.1-1.0); Monocytes % 14.6 % (1.7-9.3); Neutrophils % 75.1 % (37.0-80.0); Platelet Count 119 K/mm3 (142-424); Red Blood Count 6.23 M/mm3 (4.60-6.20); Red Cell Distribution Width 14.5 % (11.5-17.5); White Blood Count 5.4 K/mm3 (4.8-10.8)
[2024-07-22 17:41] LABS: Adenovirus,PCR Not Detected (NotDetected); Bordetella Pertussis Not Detected (NotDetected); Chlamydophila Pneumoniae, PCR Not Detected (NotDetected); Coronavirus 19, PCR Not Detected (NotDetected); Coronavirus 229E Not Detected (NotDetected); Coronavirus NL63 Not Detected (NotDetected); Coronavirus OC43 Not Detected (NotDetected); Coronovirus HKU1,PCR Not Detected (NotDetected); Human Metapneumovirus Not Detected (NotDetected); Influenza A, PCR Not Detected (NotDetected); Influenza AH1, 2009 Not Detected (NotDetected); Influenza AH1, PCR Not Detected (NotDetected); Influenza AH3,PCR Not Detected (NotDetected); Influenza B, PCR Not Detected (NotDetected); Mycoplasma Pneumoniae, PCR Not Detected (NotDetected); Parainfluenza 1, PCR Not Detected (NotDetected); Parainfluenza 2, PCR Not Detected (NotDetected); Parainfluenza 3, PCR Not Detected (NotDetected); Parainfluenza 4, PCR Not Detected (NotDetected); Respiratory Syncytial Virus Not Detected (NotDetected); Rhinovirus/Enterovirus Not Detected (NotDetected)
[2024-07-22 17:47] LABS: Alanine Aminotransferase 60 U/L (12-78); Albumin Level 4.8 g/dl (3.5-5.0); Albumin/Globulin Ratio 1.7 (1.1-1.8); Alkaline Phosphatase 58 U/L (38-126); Anion Gap 16.9 mEq/L (5-15); Aspartate Amino Transferase 116 U/L (17-59); Blood Urea Nitrogen 24 mg/dl (9-20); Calcium 9.6 mg/dl (8.4-10.2); Carbon Dioxide 28 mmol/L (22.0-30.0); Chloride 98 mmol/L (98-107); Estimated Glomerular Filt Rate 43 ml/min (>60); GFR (African American) 53 ML/MIN (>60); Globulin 2.9 g/dL (1.3-3.2); Glucose 95 mg/dl (74-100); Magnesium 2.2 mg/dl (1.6-2.3); Potassium 3.9 mmoL/L (3.5-5.1); Sodium 139 mmol/L (136-145); Total Protein,Serum 7.7 g/dl (6.3-8.2)
[2024-07-22 17:48] LABS: Phosphorous 2.6 mg/dl (2.5-4.5)
[2024-07-22 17:50] LABS: INR 1.21 (0.9-1.1); Prothrombin Time 13.3 seconds (10.1-12.5)
[2024-07-22 17:53] LABS: Hemoglobin 18.6 g/dL (14.1-18.0)
[2024-07-22 17:56] LABS: NT Pro Brain Natriuretic Pep. 1990 pg/mL (0-125)
[2024-07-22 18:00] LABS: Troponin I 0.05 ng/ml (0.00-0.034)
[2024-07-22 18:04] LABS: Procalcitonin 0.552 ng/mL (0.0-2.0)
[2024-07-22] MEDS: 0.9 % SODIUM CHLORIDE 1000ML 1,000 ML 999 ML IV (18:04)
[2024-07-22 18:19] LABS: Triiodothryronine (T3) Uptake 35 % (23.5-40.5)
[2024-07-22 18:20] LABS: Free Thyroxine Index 2.2 ug/dL (5.93-13.13); T4 (Thyroxine) 6.4 ug/dl (5.53-11.0)
[2024-07-22 18:33] LABS: Thyroid Stimulating Hormone 1.27 uIU/mL (0.465-4.68)
[2024-07-22 19:04] LABS: Erythrocyte Sedimentation Rate 1 mm/hr (0-20)
[2024-07-22 19:10] LABS: Vitamin B12 381 pg/mL (239-931)
[2024-07-22 19:15] LABS: Microscopic, Urine URINE MICROSCOPIC (MICROSCOPIC)
[2024-07-22 19:19] LABS: Bilirubin,Urine Negative (Negative); Blood, Urine MODERATE (Negative); Color,Urine YELLOW (Yellow); Glucose,Urine (UA) Negative (Negative); Ketones,Urine Negative (Negative); Leukocyte Esterase,Urine Negative (Negative); Nitrate,Urine Negative (Negative); PH,Urine 5.5 (5.0-8.5); Protein,Urine 30 (Negative); Specific Gravity, Urine 1.025 (1.005-1.030)
[2024-07-22 19:25] LABS: Appearance,Urine Slightly Cloudy (Clear)
[2024-07-22 19:33] LABS: Microscopic, Urine URINE MICROSCOPIC (MICROSCOPIC)
[2024-07-22 19:34] LABS: Ammonia < 9 umol/L (9-30)
--- NOTE | 2024-07-22 20:04 | P.HP_ITS ---
<Statement entered by Octavio Jose MD - 07/28/24 11:04> I personally examined patient and agree with the plan of care outlined by the [employer] MANAGEMENT PROFESSOR. History of Present Illness *Admission Date: 07/22/24 *Reason for visit:: Weakness *History of present illness: This is a 64-year-old male who has a past medical history significant for hypertension that is been untreated who presents with a chief complaint of physical decline, shuffling gait, and confusion. Due to patient's symptoms, he presented to the emergency room for evaluation. 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 Patient still had some weakness, so he has been admitted for further management for stroke rule out. During my evaluation of the patient, spouse at the bedside states that patient has had progressive shuffling gait and weakness that is been ongoing for greater than 6 months. She states he has been having some confusion where he would get confused of date and time. Over the last 24 to 48 hours, patient has been bed ridden. She states patient has had a decreased p.o. intake and is only drinking Mountain Dew for hydration. 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 He was prescribed antihypertensives, but patient did not take the medications. He has been untreated for hypertension since that timeframe. Patient himself is voicing no chest pain, lightheadedness, dizziness, fever, chills, rigors, shortness of breath, dyspnea, nausea, vomiting, or diarrhea. CTA of the head and neck was negative for any cerebrovascular stenosis or occlusion. Additional pertinent vitals obtained include a red blood cell count of 6.23, hemoglobin 18.6, hematocrit of 53.7, paula telet count of 119, INR 1.21, BUN of 24, creatinine 1.60, GFR 43, AST of 116, troponin 0.05, C-reactive protein is 69, and BNP of 1990. It is worth mentioning that patient has not been evaluated by a healthcare provider since 2013. [facility] Disclaimer: The information contained in this section may have been updated after the patient was seen, as this information can be updated by other users. Social History (Updated 07/22/24 @ 20:43 by CRESCENCIO Granger Smoking Status: Current every day smoker alcohol intake: never current occupational status: unemployed Travel in the last 8 weeks: None Have you lived/traveled outside [place] in past 30 days?: No Contact w/someone who lives/traveled outside US past 30 days?: No Exposure to someone with infectious disease in past 14 days?: No Do you have a fever (greater than 100.4 F or 38 C)?: No Have you tested positive for COVID-19: No Exposed to someone with COVID-19 in past 14 days?: No Do you have a sore throat?: No Do you have a cough?: No Do you have any weakness?: No Do you have any diarrhea?: No Are you experiencing any unusual bleeding?: No Do you have any muscle aches/pain?: No Do you have any abdominal pain?: No Are you experiencing loss of taste or smell?: No Review of Systems Review of Systems Review of systems:: pertinent systems reviewed and negative unless documented below Constitutional Constitutional: Reports system reviewed and no additional complaints, except as documented Eyes Eyes: Reports system reviewed and no additional complaints, except as documented ENT Ears, Nose, Mouth, and Throat: Reports system reviewed and no additional complaints, except as documented *Cardiovascular Cardiovascular: Reports system reviewed and no additional complaints, except as documented *Respiratory Respiratory: Reports system reviewed and no additional complaints, except as documented *Gastrointestinal Gastrointestinal: Reports system reviewed and no additional complaints, except as documented *Genitourinary Genitourinary: Reports system reviewed and no additional complaints, except as documented *Musculoskeletal Musculoskeletal: Reports muscle weakness Integumentary/Breasts Skin/Breast: Reports system reviewed and no additional complaints, except as documented *Neurologic Neurologic: Reports confusion Psychiatric Psychiatric: Reports system reviewed and no additional complaints, except as documented and Reports confusion Endocrine Endocrine: Reports system reviewed and no additional complaints, except as documented Hematologic/Lymphatic Hematologic/Lymphatic: Reports system reviewed and no additional complaints, except as documented Allergic/Immunologic Allergic/Immunologic: Reports system reviewed and no additional complaints, except as documented Meds Home Medications and Allergies New Prescriptions to Start Prescriptions: Allergies Allergy/AdvReac Type Severity Reaction Status Date / Time No Known Allergies Allergy Verified 07/22/24 16:55 Exam Data for Last 24 hours Vital signs and Labs for Last 24 Hours: Temp Pulse Resp BP Pulse Ox O2 Del Method 99.9 F H 102 H 20 186/120 H 96 Room Air 07/22/24 16:45 07/22/24 19:30 07/22/24 19:30 07/22/24 19:30 07/22/24 19:30 07/22/24 17:30 Laboratory Results - last 24 hr 07/22/24 16:50: WBC 5.4, RBC 6.23 H, Hgb 18.6 H, Hct 53.7 H, MCV 86.2, MCH 29.9, MCHC 34.6, RDW 14.5, Plt Count 119 L, MPV 11.9 H, Neut % (Auto) 75.1, Lymph % (Auto) 9.5 L, [place] % (Auto) 14.6 H, Eos % (Auto) 0.0 L, Baso % (Auto) 0.4, Neut # (Auto) 4.0, Lymph # (Auto) 0.5 L, [place] # (Auto) 0.8, Eos # (Auto) 0.0, Baso # (Auto) 0.0, ESR 1, PT 13.3 H, INR 1.21 H, Sodium 139, Potassium 3.9, Chloride 98, Carbon Dioxide 28, Anion Gap 16.9 H, BUN 24 H, Creatinine 1.60 H, Estimated GFR 43 L, Est GFR ( Amer) 53 L, Glucose 95, Calcium 9.6, Phosphorus 2.6, Magnesium 2.2, Total Bilirubin 1.0, AST 116 H, ALT 60, Alkaline Phosphatase 58, Troponin I 0.05 H, C-Reactive Protein 69.0 H, NT-Pro-B Natriuret Pep 1990 H, Total Protein 7.7, Albumin 4.8, Globulin 2.9, Albumin/Globulin Ratio 1.7, Vitamin B12 381, Procalcitonin 0.552, TSH 1.27, Free T4 Index 2.2 L, Thyroxine (T4) 6.4, T3 Uptake 35 07/22/24 18:56: Ammonia < 9 L 07/22/24 19:07: Urine Color Yellow, Urine Appearance Slightly cloudy, Urine pH 5.5, Ur Specific [place] 1.025, Urine Protein 30, Urine Glucose (UA) Negative, Urine Ketones Negative, Urine Blood Moderate, Urine Nitrate Negative, Urine Bilirubin Negative, Urine Urobilinogen 1.0, Ur Leukocyte Esterase Negative I & O for Last 24 hours: Intake & Output 07/19/24 07/20/24 07/21/24 07/22/24 23:59 23:59 23:59 23:59 Weight 79.379 kg Constitutional Constitutional: no acute distress and cooperative *Routine HEENT Exam Head: Present normocephalic and atraumatic Eye: Present EOMI, PERRL and normal accommodation ENT: Present mucous membranes moist *Routine Neck Exam Neck: Present supple, full ROM and trachea midline *Routine Respiratory Exam Respiratory: Present diminished air movement, able to speak in complete sentences and symmetric chest movement *Routine Cardiovascular Exam Cardiovascular: Present RRR, Normal S1 and Normal S2 *Routine Abdominal Exam Abdominal: Present soft and normoactive bowel sounds *Routine Rectal Exam Rectal:: deferred *Routine Genitalia Exam Genitalia:: deferred *Routine Extremities Exam Extremities: Present full ROM and normal capillary refill Routine Back/Spine/Pelvis Exam Back/Spine: Present full ROM *Routine Skin Exam Skin: Present intact, dry and warm *Routine Neurological Exam Neurological: Present CN II-XII intact, altered mental status and moving all extremities Comments: -4 out of 5 strength noted to upper and lower extremities -Patient has no significant focal deficit NIHSS of 0 Routine Psychiatric Exam Psychiatric: Present normal affect, normal thought process and cooperative H&P: Result Impressions 64-year-old male who presents with altered mental status and global weakness who has had no medical follow-up for greater than 10 years. He has been hypertensive since 2012 and has been untreated. Presents with systolic blood pressures in the 170s. Imaging of the brain was consistent with an old infarct. [facility] Assessment and Plan *Assessment and plan (1) Confusion: Status: Acute Category: Medical Code(s): R41.0 - Disorientation, unspecified (2) [place] (acute kidney injury): Status: Acute Category: Medical Code(s): N17.9 - Acute kidney failure, unspecified (3) Elevated brain natriuretic peptide (BNP) level: Status: Acute Category: Medical Code(s): R79.89 - Other specified abnormal findings of blood chemistry (4) Hypertensive urgency: Status: Acute Category: Medical Code(s): I16.0 - Hypertensive urgency (5) Weakness: Status: Acute Category: Medical Code(s): R53.1 - Weakness (6) Polycythemia: Status: Acute Category: Medical Code(s): D75.1 - Secondary polycythemia (7) Dehydration: Status: Acute Category: Medical Code(s): E86.0 - Dehydration (8) Coagulation defect: Status: Acute Category: Medical Code(s): D68.9 - Coagulation defect, unspecified Plan Assessment: Rule out CVA versus TIA -Will obtain MRI of the brain without contrast -Obtain 2D echo with bubble study -Will start aspirin 81 mg daily -Will allow for permissive hypertension with systolic blood pressure after 220 -Patient's last known normal was unknown he is out of the tPA window -Obtain lipid panel in a.m. -Obtain hemoglobin A1c Confusion -No clear etiology -Obtain MRI of the brain Acute kidney injury -Will obtain urine studies -Ultrasound of the kidneys -Will monitor creatinine daily -Most likely prerenal Elevated BNP -Will obtain chest x-ray Hypertensive urgency -Will allow permissive hypertension for now -After 24 to 48 hours we will start antihypertensive medication Weakness -Physical therapy -Occupational Therapy -Case management -Patient may require inpatient rehab or home health Polycythemia/dehydration -Most likely in the setting of dehydration -Anemia profile -LR at 100 mL an hour coagulopathy -No clear etiology Plan: Admit patient to the MedSurg unit Neurochecks every 4 hours CBC/BMP daily 5000 units of heparin subcu daily 21 mg nicotine patch daily 4 mg Zofran IV push every 8 hours pain nausea vomit Full code I will discuss this case with attending physician Dr. Jose and I look forward to more input
[2024-07-22] MEDS: ASPIRIN 325MG TABLET 325 MG PO (20:07)
[2024-07-22] MEDS: CLOPIDOGREL 300MG TABLET 300 MG PO (20:07)
--- NOTE | 2024-07-22 20:17 | XR_ITS ---
FINAL REPORT CLINICAL HISTORY: Shortness of breath COMPARISON: None FINDINGS: A single view of the chest was obtained. The heart size is normal. The mediastinum is normal. The lungs are underinflated. There is no focal infiltrate or edema. There are no pleural effusions. There is no pneumothorax. There is no osseous abnormality. IMPRESSION: No acute cardiopulmonary process Reviewed, Interpreted and Dictated by Nish Langley MD Transcribed by Bebe Hill Authenticated and [facility]
--- NOTE | 2024-07-22 20:17 | PC.NURSE ---
Report called; waiting on floor to come get patient.
[2024-07-22 20:32] LABS: HIV Combo NEGATIVE (Negative)
[2024-07-22 20:36] LABS: Appearance,Urine CLEAR (Clear); Bilirubin,Urine Negative (Negative); Blood, Urine MODERATE (Negative); Color,Urine YELLOW (Yellow); Glucose,Urine (UA) Negative (Negative); Ketones,Urine Negative (Negative); Leukocyte Esterase,Urine Negative (Negative); Nitrate,Urine Negative (Negative); PH,Urine 5.5 (5.0-8.5); Protein,Urine 30 (Negative)
[2024-07-22 20:41] LABS: Hepatitis C Ab Qual. W/ RFX NEGATIVE (Negative)
[2024-07-22 21:26] LABS: Bacteria,Urine 1+ /lpf; Squamous Epithelial Cell,Urine Occasional #/hpf (0-5); WBC,Urine Occasional #/hpf (0-3)
[2024-07-22 21:28] LABS: Bacteria,Urine 1+ /lpf; Fine Granular Casts,Urine Occasional #/lpf (0)
[2024-07-22 21:29] LABS: Mucus,Urine 1+ /lpf
[2024-07-22] MEDS: LACTATED RINGERS 1000ML 1,000 ML 100 ML IV (22:02)
[2024-07-22] MEDS: HEPARIN SODIUM 5,000 UNIT/ML VIAL 5000 UNIT SUBCUT (22:02)
[2024-07-22 23:00] LABS: Creatine Kinase 4494 U/L (55-170)
[2024-07-22 23:03] LABS: Creatinine,Urine Random 263 mg/dL (Not Estab.); Urea Nitrogen,Urine Random 1365 mg/dl (Not Estab.)
[2024-07-22 23:23] LABS: Folate 7.72 ng/mL
[2024-07-23] VITALS (7 sets, daily range): BP systolic 151–182; BP diastolic 100–109; PULSE 53–104; RESP 17–20; TEMP 36.8–37.4; O2SAT 92–98; BMI 25.9
[2024-07-23 01:40] LABS: Troponin I 0.06 ng/ml (0.00-0.034)
--- NOTE | 2024-07-23 05:45 | PC.NURSE ---
Pt alert to person and knows he is in [facility] but cannot specify where. Pt ambulated to with 2x assist. Pt very unsteady and shuffles feet. Cold Rolling Supervisor and strength equal bilaterally. No signs of facial droop. Pt mumbles when speaking but talks in full sentences. Pupils PERRLA, 3mm. at bedside. Call light within reach.
[2024-07-23 07:13] LABS: Basophils % 0.7 % (0.1-2.0); Hematocrit 48.5 % (42.0-52.0); Hemoglobin 16.8 g/dL (14.1-18.0); Lymphocytes # 0.4 K/mm3 (0.7-4.5); Lymphocytes % 9.8 % (10-50); Mean Corpuscular HGB Conc 34.6 g/dL (31.8-35.4); Mean Corpuscular Hemoglobin 29.2 pg (27.0-31.2); Mean Corpuscular Volume 84.3 fl (80-94); Mean Platelet Volume 10.8 fl (7.4-10.4); Monocytes # 0.6 K/mm3 (0.1-1.0); Monocytes % 15.5 % (1.7-9.3); Neutrophils % 73.8 % (37.0-80.0); Platelet Count 98 K/mm3 (142-424); Red Blood Count 5.75 M/mm3 (4.60-6.20); Red Cell Distribution Width 14.2 % (11.5-17.5); Reticulocyte % (Auto) 0.8 % (0.9-3.2); White Blood Count 4.1 K/mm3 (4.8-10.8)
[2024-07-23 07:27] LABS: Anion Gap 12.8 mEq/L (5-15); Blood Urea Nitrogen 19 mg/dl (9-20); Calcium 9.1 mg/dl (8.4-10.2); Carbon Dioxide 22 mmol/L (22.0-30.0); Chloride 104 mmol/L (98-107); Chol/HDL Ratio 4.8 (1-3.5); Cholesterol 119 mg/dl (140-200); Creatinine Clearance Estimated 74 mL/min (50-200); Estimated Glomerular Filt Rate 67 ml/min (>60); GFR (African American) 81 ML/MIN (>60); Glucose 116 mg/dl (74-100); HDL Cholesterol 25 mg/dl (40-60); Potassium 3.8 mmoL/L (3.5-5.1); Sodium 135 mmol/L (136-145); Triglycerides 129 mg/dl (30-150); VLDL Cholesterol 26 mg/dL (0-40)
[2024-07-23 07:39] LABS: Troponin I 0.05 ng/ml (0.00-0.034)
--- NOTE | 2024-07-23 08:00 | MR_ITS ---
FINAL REPORT CLINICAL HISTORY: confusion. F/U CT COMPARISON: None FINDINGS: Multi planar MR imaging was obtained through the brain without contrast. The midline structures appear intact. There is no evidence of Chiari malformation. There are foci of abnormal signal in the anterior corpus callosum is best seen on image #16 of series 2. There are extensive confluent areas of abnormal signal in the white matter bilaterally, as well as multiple remote infarcts in the bilateral basal ganglia and michelle, slightly worse on the left than on the right. On diffusion-weighted images there is no evidence of restricted diffusion. The visualized paranasal sinuses demonstrate normal signal voids. The seventh and eighth nerve root complexes are intact. IMPRESSION: Extensive areas of abnormal signal in the white matter, basal ganglia, and michelle, slightly worse on the left than on the right. No evidence of restricted diffusion is noted. The overall appearance is consistent with marked changes of ischemia, chronic, without acute intracranial abnormality. The extent of ischemic change is more than would be expected given the patient's chronologic age. Reviewed, Interpreted and Dictated by Nish Langley MD Transcribed by Venus Buchanan Authenticated and [facility]
--- NOTE | 2024-07-23 08:00 | US_ITS ---
FINAL REPORT CLINICAL HISTORY: [place] COMPARISON: None FINDINGS: RENAL ULTRASOUND Ultrasound images of the kidneys were obtained. Limited images of the liver parenchyma demonstrates normal echogenicity. The right kidney measures 9.3 cm in length. It is normal echogenicity. There is no hydronephrosis. The left kidney measures 10.9 cm in length. It is normal echogenicity. There is no hydronephrosis. IMPRESSION: Normal renal ultrasound. Reviewed, Interpreted and Dictated by Nish Langley MD Transcribed by Shruthi Carey Authenticated and [facility]
--- NOTE | 2024-07-23 08:00 | CA_ITS ---
APPROVED REPORT EXAM: Comprehensive 2D, Doppler, and color-flow Echocardiogram Skin Pass Operator: Coreen Simmons RT(R) Ht: 5 ft 9 in Wt: 175lbs BSA: 1.95 BP: 186/120 mmHg Indications: weakness, AMS, confusion, HTN, smoker, CVA vs TIA. Patient was unable to roll/move secondary to AMS. A bubble study was ordered and was attempted. Limited IV access for bubble study. Echo Enhancing Agent Indication: Endocardial border delineation Agent(s) / Amount(s) Used: Agitated Saline 20 cc 2D Dimensions LA Volume 79.80 mL LA Volume Index 40.92 mL/m2 (M/F) 16-34 M-Mode Dimensions RVDd 3.14 cm (0.9-2.6) LA Diam 3.96 cm (1.9-4.0) LVDd 4.27 cm (3.5-5.7) LVDs 3.19 cm (3.5-5.7) IVSd 1.17 cm (0.6-1.1) PWd 1.13 cm (0.6-1.1) EF (Teich) 50.30% FS 25.30% EDV (Teich) 81.70 mL TAPSE 2.34 (<1.7) ESV (Teich) 40.60 mL LV Diastology E Decel Time 157 (160-240 msec) E/A Ratio 0.8 MED A' 10.60 cm/s LAT A' 9.20 cm/s Aortic Valve YAMINI Index 1.31 cm2/m2 AoV Peak Nitin. 166.0 (50-130 cm/s) AO Peak GR. 11.00 mmHg AO Mean GR. 5.50 (<5 mmHg) AO VTI 27.6 (18-25 cm) YAMINI (VTI) 2.62 (2.5-4.5 cm2) Mitral Valve MV E Max Nitin. 88.0 (40-130 cm/s) MV A Velocity 107.0 (40-130 cm/s) E/A Ratio 0.82 MV PHT 46.0 ms Left Ventricle The left ventricle is normal size. The left ventricular systolic function is low normal. There is increased LV wall thickness. There is normal LV segmental wall motion. Diastolic function is indeterminate. LVEF is 50%. Right Ventricle The right ventricle is not very well-visualized, but appears grossly mildly dilated with mildly reduced RV function. Atria The left atrium is mildly dilated. Right atrium is mildly dilated. There is no Doppler evidence of interatrial shunt. Agitated saline administration was indeterminate for the evaluation of interatrial shunt in the setting of technically difficult study. Aortic Valve The aortic valve is mildly thickened. Trace aortic regurgitation. Trace mitral regurgitation. There is no aortic valvular stenosis. Mitral Valve The mitral valve is normal in structure. No evidence of mitral valve stenosis. Tricuspid Valve Tricuspid valve is grossly normal in structure and function. Trace tricuspid regurgitation. There is insufficient TR jet to estimate RVSP. Pulmonic Valve The pulmonary valve is normal in structure. Trace pulmonic regurgitation. Great Vessels The aortic root is normal in size. IVC is normal in size and collapses >50% with inspiration. Pericardium There is no pericardial effusion. Other Information Study Quality: Technically Difficult Conclusion Technically difficult study due to poor acoustic windows. Low normal LV systolic function. RV not well-visualized, but grossly appears mildly dilated with mild reduction in RV function. Biatrial dilation. No significant valvular stenosis or regurgitation. Agitated saline administration was attempted, but indeterminate for evaluation of interatrial shunt in the setting of technically difficult study. Electronically signed by : Vero Montana MD 07/25/2024 21:22:46
[2024-07-23 08:11] LABS: Iron 29 ug/dL (49-181)
[2024-07-23 08:17] LABS: Vitamin B12 358 pg/mL (239-931)
[2024-07-23 08:20] LABS: Total Iron Binding Capacity 227 ug/dL (261-462)
[2024-07-23] MEDS: ASPIRIN EC 81MG TABLET 81 MG PO (08:33)
[2024-07-23] MEDS: HEPARIN SODIUM 5,000 UNIT/ML VIAL 5000 UNIT SUBCUT ×2 (08:33→12:15)
[2024-07-23 08:52] LABS: Folate 7.84 ng/mL
[2024-07-23 09:17] LABS: Creatine Kinase 2380 U/L (55-170)
[2024-07-23 09:21] LABS: Hemoglobin A1C 5.4 % (4.0-6.0)
[2024-07-23 09:34] LABS: Ferritin 3360 ng/ml (17.9-464)
--- NOTE | 2024-07-23 10:57 | HMH.OTEV ---
OT Inpatient Evaluation Rehab OT IP Evaluation Start: 07/22/24 20:18 Freq: ONCE Status: Active Protocol: Document 07/23/24 09:58 [place] (Rec: 07/23/24 10:56 [facility] [id number]) Rehab OT IP Assessment Subjective History Pt oriented x 2 on arrival. Pt agreeable to engage in therapy evaluation, but was very agitated. Pt would raise his voice and shake his arms aggressively when he was asked questions about prior level of functioning. Pt admitted on 07/22/24 due to weakness. History and physical: This is a 64-year-old male who has a past medical history significant for hypertension that is been untreated who presents with a chief complaint of physical decline, shuffling gait, and confusion. Due to patient's symptoms, he presented to the emergency room for evaluation. 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 Patient still had some weakness, so he has been admitted for further management for stroke rule out . During my evaluation of the patient, spouse at the bedside states that patient has had progressive shuffling gait and weakness that is been ongoing for greater than 6 months. She states he has been having some confusion where he would get confused of date and time. Over the last 24 to 48 hours , patient has been bed ridden. She states patient has had a decreased p.o. intake and is only drinking Mountain Dew for hydration. 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 He was prescribed antihypertensives, but patient did not take the medications. He has been untreated for hypertension since that timeframe. Patient himself is voicing no chest pain, lightheadedness, dizziness, fever, chills, rigors, shortness of breath, dyspnea, nausea, vomiting, or diarrhea. CTA of the head and neck was negative for any cerebrovascular stenosis or occlusion. Additional pertinent vitals obtained include a red blood cell count of 6.23, hemoglobin 18.6, hematocrit of 53.7, platelet count of 119, INR 1.21, BUN of 24, creatinine 1.60, GFR 43, AST of 116, troponin 0.05, C- reactive protein is 69, and BNP of 1990. It is worth mentioning that patient has not been evaluated by a healthcare provider since 2012 . Subjective No family present during therapy evaluation. Pt claims prior to being in the hospital he was independent with all ADLs. However, according to history note he has been bed ridden the past few days and has had weakness and shuffling while walking. Pt claims he is normally able to transfer independently with no AE. However, information provided may not be trust worthy due to mentation/ agitation. Objective Patient Orientation Person,Birthday Right Upper Extremity Gross ROM WFL Left Upper Extremity Gross ROM WFL Bed Mobility bed mobility-scooting,bed mobility - supine/sit Assist Level Minimal x 1 (25% assist) Transfer Training Sit/Stand Transfer Assist Level Minimal x 1 (25% assist) Rehab OT IP prob,goals,plan Problems Date of Evaluation: 07/23/24 OT IP Problems Bed Mobility,Transfers,Balance ,Self care,Safety Rehab Potential Rehab Potential Good Equipment Needs Assistive Devices Rolling / Wheeled Walker Plan OT intervention Plan Bed Mobility,Transfers,Balance ,Self care,Safety,Therapeutic Exercise OT Plan Frequency Daily Duration LOS Discharge Goals Bed Mobility Ability Standby Assistance Sit to Stand Chair Transfer Ability Contact Guard/Hand Hold Chair Transfer Ability Contact Guard/Hand Hold Chair Transfer Technique Sit to/from Ambulatory Chair Transfer Assistive Devices Rolling Walker Lower Body Dressing Ability Moderate Assistance Upper Body Dressing Ability Minimal Assistance Bathing Ability Moderate Assistance Performing Toilet Hygiene Ability Moderate Assistance Overall Commode/Toilet Transfer Ability Contact Guard,Minimal Assistance Commode/Toilet Transfer Technique Sit to/from Ambulatory Commode/Toilet Transfer Assistive Grab Bars Devices Oral Care Assist Contact Guard Decrease in Endurance Yes Discharge Plan OT Discharge Plan Pt will continue to be seen for skilled OT services while at [facility]. At this time, pt would benefit most from short term rehab at [facility] following discharge from hospital. If pt/family are reluctant, pt would require 24/ assistance and OT evaluation. Continued skilled therapy services are important in order to improve strength, safety, endurance, ADL independence, and functional transfers to reach [facility]. Eval Complexity Eval Charge Codes 77388 - Moderate Complexity PHYSICIAN CERTIFICATION: I certify the specified therapy services for Kelvin Lockhart are required, authorized, and reviewed every 30 days.
--- NOTE | 2024-07-23 11:48 | SW/DCPLANNER ---
Addendum entered by Arina Agarwal RN 07/27/24 14:27: Spoke with patient's at [phone]. She states she is taking patient home and he is not going to placement at this time. Addendum entered by [facility] 07/27/24 08:54: is agreeable to placement at [facility] SNF level of care. will be at [facility] to transport patient at 4PM. I have updated Hira / [facility]. Addendum entered by [facility] 07/27/24 07:35: [facility] is able to accept this patient SNF level of care. I have made several attempts to contact : unsuccessful at this time. was not at bedside yesterday during the day. Patient is medically stable for discharge today. Addendum entered by [facility] 07/26/24 15:23: Per Rekha morales/ [facility] and [facility] no beds available at this time. Iman morales/ [facility] and Hira morales/ [facility] are currently reviewing patient information. Addendum entered by [facility] 07/26/24 15:06: I have attempted to contact patient's multiple times today regarding discharge planning: no answer at this time. Addendum entered by [facility] 07/26/24 12:53: Patient is agreeable for information to be faxed to [facility] and [facility]. I have attempted to contact patient's : no answer at this time. Addendum entered by [facility] 07/26/24 09:36: [place] is unable to accept this patient. Addendum entered by [facility] 07/26/24 07:40: Updated patient information faxed to [facility] and Yane morales/ [facility]. Addendum entered by [facility] 07/23/24 14:01: Patient is agreeable to placement to any SNF in [place]. Patient information has been faxed to [facility] and [facility]. I have updated MD. I will continue to follow up. Original Note: I spoke w/ patient and his this AM regarding plans once medically stable for discharge. OT evaluated patient this AM and recommended SNF level of care. I attempted to speak w/ patient about placement and he began shouting I am ready to go home, I have things to do at home . Patient would not answer any further questions at this time. I did update MD whom stated that he will speak w/ patient this AM. I will continue to follow up.
[2024-07-23] MEDS: NICOTINE 21MG/24HR PATCH 21 MG TD (13:54)
[2024-07-23] MEDS: IRBESARTAN 75MG TABLET 75 MG PO (14:37)
[2024-07-23] MEDS: CLOPIDOGREL 75MG TAB 75 MG PO (14:37)
--- NOTE | 2024-07-23 14:41 | HMH.PTEV ---
Physical Therapy Evaluation Rehab PT IP Evaluation Start: 07/22/24 20:18 Freq: ONCE Status: Active Protocol: Document 07/23/24 14:33 [facility] (Rec: 07/23/24 14:41 [facility] [id number]) Subjective/History History History 64-year-old male who has a past medical history significant for hypertension that is been untreated who presents with a chief complaint of physical decline, shuffling gait, and confusion . Due to patient's symptoms, he presented to the emergency room for evaluation. 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 Patient still had some weakness, so he has been admitted for further management for stroke rule out. Pt present at bedside this pm and supplements his history. She reports he has suffered from decreased mobility for ~ 6-8 mos with shuffling gait, but has been unable to ambulate at all with multiple falls over the past 2 days. She reports no [place] the home, but he does have a flight of stairs to ascend to reach his bedroom, and he generally ambulates without AD at baseline. MRI with significant possible infarcts and white matter changes per report. Pt inpatient wound consult based on low aris score, but pt has no open wounds at this time. Subjective Subjective Pt has no c/o pain or discomfort currently. He does agree to OOB mobility assessment. [facility] How much help from another person do you currently need... Turning from your back to your side A little while in a flat bed without using bedrails? Moving from lying on back to sitting on A little the side of a flat bed without using bedrails? Moving to and from a bed to a chair ( A little including a wheelchair)? Standing up from a chair using your arms A little ? (e.g., wheelchair, bedside chair) Walking in hospital room? A little Climbing 3-5 steps with a railing? A little Mobility Score 18 Mobility Level [facility] Mobility Calculator Mobility 6 Walk 10 steps or more Rehab PT IP Eval Objective Appearance Patient Behavior Appropriate,Guarded Patient Orientation Person Difficulty following instructions mild Speech Pattern Clear Ambulation Patient Able to Ambulate Yes Ambulation Observation IP General Gait Pattern Observation Shuffling Step Ambulation Distance (feet) 20 Ambulation Assistive Device None Ambulation Ability Minimal x 1 (25% assist) Balance Ability to Arise Able, uses arms to help Sitting Balance Leans or slides in chair Standing Balance Unsteady Dynamic Sitting Balance Ability Poor Dynamic Standing Balance Ability Poor Transfers Bed Transfer Ability Contact Guard/Hand Hold Chair Transfer Ability Contact Guard/Hand Hold Sit to Stand Bed Transfer Ability Contact Guard/Hand Hold Sit to Stand Chair Transfer Ability Contact Guard/Hand Hold ROM All Extremities PT ROM Status WFL MMT All Extremities PT MMT WFL Rehab PT IP prob,goals,plan Problems Date of Evaluation: 07/23/24 PT IP Problems Bed Mobility,Transfers,Gait, Balance Rehab Potential Rehab Potential Good Plan PT Intervention Plan Bed Mobility,Transfers,Gait, Balance,Therapeutic Exercise PT Plan Frequency Daily Duration LOS Discharge Goals Bed Transfer Ability Supervision/Stand by Sit to Stand Chair Transfer Ability Supervision/Stand by Ambulation Assistive Device Rolling Walker Ambulation Distance (feet) 40 Discharge Plan PT Discharge Plan Pt is currently most appropriate for rehab placement once medically stable for d/c. Skilled acute therapy services are indicated to improve transfers, improve balance, and improve gait in order to aid pt return to [place] . Eval Complexity Eval Charge Codes 22185 - High Complexity PHYSICIAN CERTIFICATION: I certify the specified therapy services for Kelvin Lockhart are required, authorized, and reviewed every 30 days.
--- NOTE | 2024-07-23 15:47 | P.PN_ITS ---
Subjective *Date: 07/23/24 *Time: 15:47 Interval history: Patient was initially agitated with nurses, but was pleasant with me this afternoon. MRI showed multiple strokes, chronic. Patient amenable to starting treatment and SNF placement. Continues to have lower extremity weakness. Exam Data for Last 24 hours Vital signs and Labs for Last 24 Hours: Temp Pulse Resp BP Pulse Ox O2 Del Method 98.3 F 70 17 175/100 H 98 Room Air 07/23/24 11:43 07/23/24 12:00 07/23/24 11:43 07/23/24 11:43 07/23/24 11:43 07/23/24 14:54 Laboratory Results - last 24 hr 07/22/24 16:50: WBC 5.4, RBC 6.23 H, Hgb 18.6 H, Hct 53.7 H, MCV 86.2, MCH 29.9, MCHC 34.6, RDW 14.5, Plt Count 119 L, MPV 11.9 H, Neut % (Auto) 75.1, Lymph % (Auto) 9.5 L, [place] % (Auto) 14.6 H, Eos % (Auto) 0.0 L, Baso % (Auto) 0.4, Neut # (Auto) 4.0, Lymph # (Auto) 0.5 L, [place] # (Auto) 0.8, Eos # (Auto) 0.0, Baso # (Auto) 0.0, ESR 1, PT 13.3 H, INR 1.21 H, Sodium 139, Potassium 3.9, Chloride 98, Carbon Dioxide 28, Anion Gap 16.9 H, BUN 24 H, Creatinine 1.60 H, Estimated GFR 43 L, Est GFR ( Amer) 53 L, Glucose 95, Calcium 9.6, Phosphorus 2.6, Magnesium 2.2, Total Bilirubin 1.0, AST 116 H, ALT 60, Alkaline Phosphatase 58, Total Creatine Kinase 4494 H*, Troponin I 0.05 H, C-Reactive Protein 69.0 H, NT-Pro-B Natriuret Pep 1990 H, Total Protein 7.7, Albumin 4.8, Globulin 2.9, Albumin/Globulin Ratio 1.7, Vitamin B12 381, Procalcitonin 0.552, TSH 1.27, Free T4 Index 2.2 L, Thyroxine (T4) 6.4, T3 Uptake 35, HCV Ab FELICITA w/Rflx PCR Qn Negative, HIV Ag/Ab Combo Qual Negative 07/22/24 17:38: Chlamy pneumoniae PCR Not detected, Adenovirus (PCR) Not detected, B. pertussis DNA (PCR) Not detected, Coronavirus OC43 (PCR) Not detected, Coronavirus HKU1 (PCR) Not detected, Coronavirus 229E (PCR) Not detected, SARS-CoV-2 (PCR) Not detected, Coronavirus NL63 (PCR) Not detected, Human Metapneumovir PCR Not detected, Influenza A (H1) PCR Not detected, Influ A (H1N1/09) PCR Not detected, Influenza A (H3) PCR Not detected, Influenza Type A (PCR) Not detected, Influenza Type B (PCR) Not detected, M. pneumoniae (PCR) Not detected, Parainfluenza 1 (PCR) Not detected, Parainfluenza 2 (PCR) Not detected, Parainfluenza 3 (PCR) Not detected, Parainfluenza 4 (PCR) Not detected, RSV (PCR) Not detected, Entero/Rhino (PCR) Not detected 07/22/24 18:56: Ammonia < 9 L 07/22/24 19:07: Urine Color Yellow, Urine Appearance Slightly cloudy, Urine pH 5.5, Ur Specific [place] 1.025, Urine Protein 30, Urine Glucose (UA) Negative, Urine Ketones Negative, Urine Blood Moderate, Urine Nitrate Negative, Urine Bilirubin Negative, Urine Urobilinogen 1.0, Ur Leukocyte Esterase Negative, Urine RBC None, Urine WBC Occasional, Ur Squamous Epith Cells Occasional, Urine Bacteria 1+, Ur Random Urea Nitrogn 1365, Urine Creatinine 263, Urine Sodium 56.0, Urine Total Protein 35.0 H 07/22/24 19:28: Urine Color Yellow, Urine Appearance Clear, Urine pH 5.5, Ur Specific [place] 1.020, Urine Protein 30, Urine Glucose (UA) Negative, Urine Ketones Negative, Urine Blood Moderate, Urine Nitrate Negative, Urine Bilirubin Negative, Urine Urobilinogen 2.0, Ur Leukocyte Esterase Negative, Urine RBC None, Urine WBC 3-5, Ur Squamous Epith Cells 3-5, Urine Bacteria 1+, Hyaline Casts 3-5, Fine Granular Casts Occasional, Urine Mucus 1+ 07/22/24 21:21: Folate 7.72 07/23/24 01:08: Troponin I 0.06 H 07/23/24 06:40: WBC 4.1 L, RBC 5.75, Hgb 16.8, Hct 48.5, MCV 84.3, MCH 29.2, MCHC 34.6, RDW 14.2, Plt Count 98 L, MPV 10.8 H, Neut % (Auto) 73.8, Lymph % (Auto) 9.8 L, [place] % (Auto) 15.5 H, Eos % (Auto) 0.0 L, Baso % (Auto) 0.7, Neut # (Auto) 3.0, Lymph # (Auto) 0.4 L, [place] # (Auto) 0.6, Eos # (Auto) 0.0, Baso # (Auto) 0.0, Retic Count (auto) 0.8 L, Sodium 135 L, Potassium 3.8, Chloride 104, Carbon Dioxide 22, Anion Gap 12.8, BUN 19, Creatinine 1.10 D, Estimated Creat Clear 74, Estimated GFR 67, Est GFR ( Amer) 81 D, Glucose 116 H D, Hemoglobin A1c 5.4, Calcium 9.1, Iron 29 L, TIBC 227 L, Iron Saturation 12.28900 L, Ferritin 3360 H, Troponin I 0.05 H, Triglycerides 129, Cholesterol 119 L, LDL Cholesterol Direct 63.80 L, VLDL Cholesterol 26, HDL Cholesterol 25 L, Cholesterol/HDL Ratio 4.8 H, Vitamin B12 358, Folate 7.84 07/23/24 07:20: Total Creatine Kinase 2380 H* D I & O for Last 24 hours: Intake & Output 07/20/24 07/21/24 07/22/24 07/23/24 23:59 23:59 23:59 23:59 Intake Total 1140 / 1140 Balance 1140 / 1140 Weight 79.379 kg 79.37 kg Constitutional Constitutional: no acute distress *Routine HEENT Exam Head: Present normocephalic Eye: Present EOMI and PERRL ENT: Present mucous membranes moist *Routine Neck Exam Neck: Present supple; Absent lymphadenopathy *Routine Respiratory Exam Respiratory: Present CTA bilaterally *Routine Cardiovascular Exam Cardiovascular: Present RRR *Routine Abdominal Exam Abdominal: Present soft and normoactive bowel sounds; Absent tenderness *Routine Extremities Exam Extremities: Absent cyanosis, clubbing or edema Comments: Lower extremity weakness 3/5 bilateral. *Routine Skin Exam Skin: Present warm; Absent rash *Routine Neurological Exam Neurological: Present alert Assessment and Plan *Assessment and plan (1) Confusion: Status: Acute Category: Medical Code(s): R41.0 - Disorientation, unspecified (2) [place] (acute kidney injury): Status: Acute Category: Medical Code(s): N17.9 - Acute kidney failure, unspecified (3) Elevated brain natriuretic peptide (BNP) level: Status: Acute Category: Medical Code(s): R79.89 - Other specified abnormal findings of blood chemistry (4) Hypertensive urgency: Status: Acute Category: Medical Code(s): I16.0 - Hypertensive urgency (5) Weakness: Status: Acute Category: Medical Code(s): R53.1 - Weakness (6) Polycythemia: Status: Acute Category: Medical Code(s): D75.1 - Secondary polycythemia (7) Dehydration: Status: Acute Category: Medical Code(s): E86.0 - Dehydration (8) Coagulation defect: Status: Acute Category: Medical Code(s): D68.9 - Coagulation defect, unspecified (9) CVA (cerebral vascular accident): Status: Acute Category: Medical Code(s): I63.9 - Cerebral infarction, unspecified Plan Kelvin Lockhart is a 64-year-old male with a medical history significant for uncontrolled hypertension, medical nonadherence who presented with worsening shuffling gait, confusion, falls and was admitted for further evaluation of the symptoms. #CVA #Shuffling gait #Lower extremity weakness ? states patient has had 1 year onset of lower extremity weakness, shuffling gait in addition to slurred speech. She notes patient has refused to seek medical evaluation for the symptoms. ? Brain MRI 07/23/2024 revealed extensive areas of chronic ischemia in the white matter, basal cannula, michelle slightly worse on the left than the right. No acute findings however. ? CTA head/neck did not show stenosis or large vessel occlusion. ECHO report pending. ? Extensively discussed findings with patient and his , including risk factors, and they both acknowledged understanding. Patient was amenable to treating risk factors and starting treatment. ? Risk factors include chronic tobacco smoking, uncontrolled hypertension. A1c and LDL normal. ? Started aspirin 81 mg, Plavix 75 mg, atorvastatin 40 mg. ? PT/OT consulted, recommended SNF. Discussed with case management, assisting with placement. ? Low suspicion for Parkinson's disease as there is no signs of akathisia, cogwheel rigidity. #Hypertension ? Systolics and diastolics consistently in the 180s over 100s. ? Started irbesartan 75 mg daily. Follow-up on response. #[place] #Rhabdomyolysis ? Initial creatinine 1.6, CK 4494. ? Improved to 1.0 with IV fluid resuscitation. Repeat CK 2380. #Elevated BNP, troponin ? BNP 1989, troponin plateaued at 0.05. ? Likely representing NSTEMI type II in the setting of hypovolemia, rhabdomyolysis. ? Follow-up ECHO. Full code DVT prophylaxis: Holding in the setting of thrombocytopenia platelets 98. SCDs
[2024-07-23] MEDS: LACTATED RINGERS 1000ML 1,000 ML 100 ML IV (16:45)
--- NOTE | 2024-07-23 17:22 | PC.NURSE ---
pt alert to self and place only. pt can verbalize name and that he is at [facility]. pt is insistent on ambulating to the BR instead of using urinal and refuses to have purewick placed. pt does have periods of incontinence, but states that he knows when he has to use the bathroom . pt requires x2 assistance for ambulation and is very shaky on his feet. pt is delayed when taking steps and has a shuffling gait. pt has become resistive and belligerent with nursing staff numerous times, using profane language. hospitalist notified of pt agitation. pt complies with care after allowing a cooling off period . SCDS in place. LR running @ 100. Bed alarm on for pt safety. pt tries to get out of bed without assistance. was at bedside most of the day and assisted with pt needs. pt pulls at gown and chain dyer leads, requiring replacement often. pt has no needs at this time. call light is within reach. bed in low and locked position and bed alarm in place.
[2024-07-23 19:37] LABS: Troponin I 0.04 ng/ml (0.00-0.034)
[2024-07-23] MEDS: ATORVASTATIN 40MG TABLET 40 MG PO (20:16)
[2024-07-24] VITALS (8 sets, daily range): BP systolic 135–183; BP diastolic 79–120; PULSE 60–110; RESP 16–20; TEMP 36.8–38.6; O2SAT 94–96; BMI 29.0
[2024-07-24] MEDS: LACTATED RINGERS 1000ML 1,000 ML 100 ML IV (03:34)
--- NOTE | 2024-07-24 06:28 | PC.NURSE ---
Pt has remained confused this shift only alert to self. He has tolerated room air with 02 sats greater then 92%. Bed alarm has remained in place for patient safety. He has tried to get out of bed a couple times this shift and required x2 assist. Currently resting bed with call light within reach.
[2024-07-24 07:03] LABS: Basophils % 0.5 % (0.1-2.0); Hemoglobin 17.2 g/dL (14.1-18.0); Lymphocytes # 0.5 K/mm3 (0.7-4.5); Lymphocytes % 10.9 % (10-50); Mean Corpuscular HGB Conc 35.1 g/dL (31.8-35.4); Mean Corpuscular Hemoglobin 29.2 pg (27.0-31.2); Mean Corpuscular Volume 83.1 fl (80-94); Mean Platelet Volume 11.6 fl (7.4-10.4); Monocytes # 0.6 K/mm3 (0.1-1.0); Monocytes % 12.7 % (1.7-9.3); Neutrophils # 3.3 K/mm3 (1.8-7.8); Neutrophils % 75.4 % (37.0-80.0); Platelet Count 94 K/mm3 (142-424); Red Cell Distribution Width 13.7 % (11.5-17.5); White Blood Count 4.4 K/mm3 (4.8-10.8)
[2024-07-24 07:09] LABS: Chloride 99 mmol/L (98-107)
[2024-07-24 07:10] LABS: Sodium 129 mmol/L (136-145)
[2024-07-24 07:12] LABS: Blood Urea Nitrogen 15 mg/dl (9-20); Creatine Kinase 1206 U/L (55-170); Creatinine Clearance Estimated 91 mL/min (50-200); Estimated Glomerular Filt Rate 84 ml/min (>60); GFR (African American) 102 ML/MIN (>60)
[2024-07-24 07:13] LABS: Calcium 8.8 mg/dl (8.4-10.2); Carbon Dioxide 22 mmol/L (22.0-30.0); Glucose 120 mg/dl (74-100)
[2024-07-24] MEDS: ASPIRIN EC 81MG TABLET 81 MG PO (08:05)
[2024-07-24] MEDS: CLOPIDOGREL 75MG TAB 75 MG PO (08:05)
[2024-07-24] MEDS: IRBESARTAN 75MG TABLET 75 MG PO (08:05)
[2024-07-24] MEDS: ACETAMINOPHEN 325MG TAB 650 MG PO (08:05)
[2024-07-24 08:12] LABS: Albumin Level 3.6 g/dl (3.5-5.0); Chloride 99 mmol/L (98-107); Potassium 4.3 mmoL/L (3.5-5.1); Sodium 130 mmol/L (136-145)
[2024-07-24 08:15] LABS: Alanine Aminotransferase 67 U/L (12-78); Albumin/Globulin Ratio 1.6 (1.1-1.8); Alkaline Phosphatase 59 U/L (38-126); Anion Gap 13.3 mEq/L (5-15); Aspartate Amino Transferase 100 U/L (17-59); Bilirubin,Total 1.1 mg/dl (0.2-1.3); Blood Urea Nitrogen 15 mg/dl (9-20); Carbon Dioxide 22 mmol/L (22.0-30.0); Creatinine Clearance Estimated 91 mL/min (50-200); Estimated Glomerular Filt Rate 84 ml/min (>60); GFR (African American) 102 ML/MIN (>60); Globulin 2.3 g/dL (1.3-3.2); Total Protein,Serum 5.9 g/dl (6.3-8.2)
[2024-07-24 08:16] LABS: Calcium 8.9 mg/dl (8.4-10.2); Glucose 113 mg/dl (74-100)
[2024-07-24 09:21] LABS: Adenovirus,PCR Not Detected (NotDetected); Bordetella Pertussis Not Detected (NotDetected); Chlamydophila Pneumoniae, PCR Not Detected (NotDetected); Coronavirus 19, PCR Not Detected (NotDetected); Coronavirus 229E Not Detected (NotDetected); Coronavirus NL63 Not Detected (NotDetected); Coronavirus OC43 Not Detected (NotDetected); Coronovirus HKU1,PCR Not Detected (NotDetected); Human Metapneumovirus Not Detected (NotDetected); Influenza A, PCR Not Detected (NotDetected); Influenza AH1, 2009 Not Detected (NotDetected); Influenza AH1, PCR Not Detected (NotDetected); Influenza AH3,PCR Not Detected (NotDetected); Influenza B, PCR Not Detected (NotDetected); Mycoplasma Pneumoniae, PCR Not Detected (NotDetected); Parainfluenza 1, PCR Not Detected (NotDetected); Parainfluenza 2, PCR Not Detected (NotDetected); Parainfluenza 3, PCR Not Detected (NotDetected); Parainfluenza 4, PCR Not Detected (NotDetected); Respiratory Syncytial Virus Not Detected (NotDetected); Rhinovirus/Enterovirus Not Detected (NotDetected)
[2024-07-24] MEDS: IRBESARTAN 150MG TAB 150 MG PO (09:30)
--- NOTE | 2024-07-24 12:29 | CT_ITS ---
PROCEDURE INFORMATION: Exam: CT Abdomen And Pelvis With Contrast Exam date and time: 07/24/2024 2:43 PM Age: 64 years old Clinical indication: Other: Sepsis workup, temp 101.4 TECHNIQUE: Imaging protocol: Computed tomography of the abdomen and pelvis with contrast. Radiation optimization: All CT scans at this facility use at least one of these dose optimization techniques: automated exposure control; mA and/or kV adjustment per patient size (includes targeted exams where dose is matched to clinical indication); or iterative reconstruction. Contrast material: ISOVUE; Contrast volume: 75 ml; Contrast route: IV; COMPARISON: US KIDNEY 07/23/2024 8:16 AM FINDINGS: Liver: Unremarkable. Gallbladder and biliary ducts: Gallbladder is contracted and otherwise unremarkable. No biliary ductal dilation. Pancreas: No evidence of acute pancreatitis. No pancreatic ductal dilation. Spleen: Unremarkable. Adrenal glands: Unremarkable. Kidneys and ureters: Single non-obstructing stone in the left kidney. No hydronephrosis. Stomach and bowel: Wall thickening and mucosal hyperenhancement in the duodenal bulb and 2nd part the duodenum compatible with acute peptic ulcer disease. Appendix: No evidence of appendicitis. Intraperitoneal space: No free fluid. No pneumoperitoneum. Vasculature: Unremarkable. Lymph nodes: Unremarkable. Urinary bladder: Unremarkable. Reproductive: Prostate is enlarged, measuring approximately 5.0 cm in transverse axis. Bones/joints: No evidence of acute osseous abnormality. Soft tissues: Left inguinal hernia containing a long segment of the sigmoid colon. IMPRESSION: 1. Wall thickening and mucosal hyperenhancement in the duodenal bulb and 2nd part the duodenum compatible with acute peptic ulcer disease. No evidence of bowel perforation. 2. Single non-obstructing stone in the left kidney. 3. Left inguinal hernia containing a long segment of the sigmoid colon. No evidence of obstruction or strangulation. 4. Enlarged prostate.
--- NOTE | 2024-07-24 12:29 | CT_ITS ---
PROCEDURE INFORMATION: Exam: CT Chest Without Contrast; Diagnostic Exam date and time: 07/24/2024 2:38 PM Age: 64 years old Clinical indication: Other: Sepsis workup, temp 101.4 TECHNIQUE: Imaging protocol: Diagnostic computed tomography of the chest without contrast. Radiation optimization: All CT scans at this facility use at least one of these dose optimization techniques: automated exposure control; mA and/or kV adjustment per patient size (includes targeted exams where dose is matched to clinical indication); or iterative reconstruction. COMPARISON: CR XR CHEST PORTABLE 07/22/2024 10:36 PM FINDINGS: Lungs: No evidence of focal airspace infiltrate or congestive pulmonary edema. Pleural spaces: Calcified pleural plaques in the left hemithorax with pleuroparenchymal scarring and volume loss. Heart: No cardiomegaly. Trace pericardial fluid noted. No circumferential pericardial effusion. Lymph nodes: Unremarkable. Vasculature: Unremarkable. Bones/joints: No evidence of acute osseous abnormality. Soft tissues: Unremarkable. IMPRESSION: 1. No acute findings. No evidence of pneumonia. 2. Concurrent CT abdomen/pelvis reported separately.
[2024-07-24] MEDS: PIPERCILLIN/TAZO 3.375 GM in 0.9 % SODIUM CHLORIDE 50 ML IV ×2 (13:33→20:31)
[2024-07-24 14:01] LABS: C-Reactive Protein 68.2 mg/L (0-4)
[2024-07-24] MEDS: SODIUM CHLORIDE 0.9% 10ML SYR (RAD ONLY) 10 ML IV (14:44)
[2024-07-24] MEDS: IOPAMIDOL-370 (76%);100ML BOTTLE 75 ML IV (14:44)
[2024-07-24 15:15] LABS: Erythrocyte Sedimentation Rate 2 mm/hr (0-20)
--- NOTE | 2024-07-24 16:13 | EXP.PN ---
Subjective *Date: 07/24/24 *Time: 16:13 Interval history: Patient was lying in bed naked as he states he felt feverish. Temperature of 101.4 this morning. Patient denies any symptoms. Alert and oriented. Follow-up blood cultures. Started Zosyn. Exam Data for Last 24 hours Vital signs and Labs for Last 24 Hours: Temp Pulse Resp BP Pulse Ox O2 Del Method 99.0 F 65 16 135/86 96 Room Air 07/24/24 16:00 07/24/24 16:00 07/24/24 16:00 07/24/24 16:00 07/24/24 16:00 07/24/24 16:00 Laboratory Results - last 24 hr 07/23/24 17:08: Troponin I 0.04 H 07/24/24 06:50: WBC 4.4 L, RBC 5.90, Hgb 17.2, Hct 49.0, MCV 83.1, MCH 29.2, MCHC 35.1, RDW 13.7, Plt Count 94 L, MPV 11.6 H, Neut % (Auto) 75.4, Lymph % (Auto) 10.9, [place] % (Auto) 12.7 H, Eos % (Auto) 0.0 L, Baso % (Auto) 0.5, Neut # (Auto) 3.3, Lymph # (Auto) 0.5 L, [place] # (Auto) 0.6, Eos # (Auto) 0.0, Baso # (Auto) 0.0, Sodium 129 L 07/24/24 06:50: Sodium 130 L, Potassium 4.0 07/24/24 06:50: Potassium 4.3, Chloride 99 07/24/24 06:50: Chloride 99, Carbon Dioxide 22 07/24/24 06:50: Carbon Dioxide 22, Anion Gap 12.0 07/24/24 06:50: Anion Gap 13.3, BUN 15 07/24/24 06:50: BUN 15, Creatinine 0.90 07/24/24 06:50: Creatinine 0.90, Estimated Creat Clear 91 07/24/24 06:50: Estimated Creat Clear 91, Estimated GFR 84 07/24/24 06:50: Estimated GFR 84, Est GFR ( Amer) 102 D 07/24/24 06:50: Est GFR ( Amer) 102, Glucose 120 H 07/24/24 06:50: Glucose 113 H, Calcium 8.8 07/24/24 06:50: Calcium 8.9, Total Bilirubin 1.1, AST 100 H, ALT 67, Alkaline Phosphatase 59, Total Creatine Kinase 1206 H* D, Total Protein 5.9 L, Albumin 3.6, Globulin 2.3, Albumin/Globulin Ratio 1.6 07/24/24 09:17: Chlamy pneumoniae PCR Not detected, Adenovirus (PCR) Not detected, B. pertussis DNA (PCR) Not detected, Coronavirus OC43 (PCR) Not detected, Coronavirus HKU1 (PCR) Not detected, Coronavirus 229E (PCR) Not detected, SARS-CoV-2 (PCR) Not detected, Coronavirus NL63 (PCR) Not detected, Human Metapneumovir PCR Not detected, Influenza A (H1) PCR Not detected, Influ A (H1N1/09) PCR Not detected, Influenza A (H3) PCR Not detected, Influenza Type A (PCR) Not detected, Influenza Type B (PCR) Not detected, M. pneumoniae (PCR) Not detected, Parainfluenza 1 (PCR) Not detected, Parainfluenza 2 (PCR) Not detected, Parainfluenza 3 (PCR) Not detected, Parainfluenza 4 (PCR) Not detected, RSV (PCR) Not detected, Entero/Rhino (PCR) Not detected 07/24/24 12:07: C-Reactive Protein 68.2 H 07/24/24 13:20: ESR 2 I & O for Last 24 hours: Intake & Output 07/21/24 07/22/24 07/23/24 07/24/24 23:59 23:59 23:59 23:59 Intake Total 1620 / 2320 990 / 990 Output Total 0 / 0 0 / 0 Balance 1620 / 2320 990 / 990 Weight 79.379 kg 79.37 kg 88.813 kg Constitutional Constitutional: no acute distress *Routine HEENT Exam Head: Present normocephalic Eye: Present EOMI and PERRL ENT: Present mucous membranes moist *Routine Neck Exam Neck: Present supple; Absent lymphadenopathy *Routine Respiratory Exam Respiratory: Present CTA bilaterally *Routine Cardiovascular Exam Cardiovascular: Present RRR *Routine Abdominal Exam Abdominal: Present soft and normoactive bowel sounds; Absent tenderness *Routine Extremities Exam Extremities: Absent cyanosis, clubbing or edema Comments: Lower extremity weakness 3/5 bilateral. *Routine Skin Exam Skin: Present warm; Absent rash *Routine Neurological Exam Neurological: Present alert Assessment and Plan *Assessment and plan (1) Confusion: Status: Acute Category: Medical Code(s): R41.0 - Disorientation, unspecified (2) [place] (acute kidney injury): Status: Acute Category: Medical Code(s): N17.9 - Acute kidney failure, unspecified (3) Elevated brain natriuretic peptide (BNP) level: Status: Acute Category: Medical Code(s): R79.89 - Other specified abnormal findings of blood chemistry (4) Hypertensive urgency: Status: Acute Category: Medical Code(s): I16.0 - Hypertensive urgency (5) Weakness: Status: Acute Category: Medical Code(s): R53.1 - Weakness (6) Polycythemia: Status: Acute Category: Medical Code(s): D75.1 - Secondary polycythemia (7) Dehydration: Status: Acute Category: Medical Code(s): E86.0 - Dehydration (8) Coagulation defect: Status: Acute Category: Medical Code(s): D68.9 - Coagulation defect, unspecified (9) CVA (cerebral vascular accident): Status: Acute Category: Medical Code(s): I63.9 - Cerebral infarction, unspecified Plan Kelvin Lockhart is a 64-year-old male with a medical history significant for uncontrolled hypertension, medical nonadherence who presented with worsening shuffling gait, confusion, falls and was admitted for further evaluation of the symptoms. #CVA #Shuffling gait #Lower extremity weakness ? states patient has had 1 year onset of lower extremity weakness, shuffling gait in addition to slurred speech. She notes patient has refused to seek medical evaluation for the symptoms. ? Brain MRI 07/23/2024 revealed extensive areas of chronic ischemia in the white matter, basal cannula, michelle slightly worse on the left than the right. No acute findings however. ? CTA head/neck did not show stenosis or large vessel occlusion. ECHO report pending. ? Extensively discussed findings with patient and his , including risk factors, and they both acknowledged understanding. Patient was amenable to treating risk factors and starting treatment. ? Risk factors include chronic tobacco smoking, uncontrolled hypertension. A1c and LDL normal. ? Continue aspirin 81 mg, Plavix 75 mg, atorvastatin 40 mg. ? PT/OT consulted, recommended SNF. Discussed with case management, assisting with placement. ? Low suspicion for Parkinson's disease as there is no signs of akathisia, cogwheel rigidity. #Fever of unknown origin ? Temperature of 101.4 this morning, patient states he is asymptomatic. ? Respiratory panel, procalcitonin negative. CRP 68.2, ESR normal. ? CT abdomen/pelvis, chest did not show acute infectious findings. ? Follow-up blood cultures, though obtained after antibiotics. ? Started Zosyn day 1. ? Follow-up morning morning CBC, ESR, CRP. #Hypertension ? Systolics and diastolics consistently in the 180s over 100s. ? Started irbesartan 75 mg daily. Follow-up on response. #[place] #Rhabdomyolysis ? Initial creatinine 1.6, CK 4494. ? Improved to 0.9 with IV and oral fluid resuscitation. Repeat CK 2380 to 1206. #Elevated BNP, troponin ? BNP 1989, troponin plateaued at 0.05. ? Likely representing NSTEMI type II in the setting of hypovolemia, rhabdomyolysis. ? Follow-up ECHO. Full code DVT prophylaxis: Holding in the setting of thrombocytopenia platelets 94. SCDs
--- NOTE | 2024-07-24 17:40 | PC.NURSE ---
Addendum entered by Abby Prado RN 07/24/24 17:44: BP's have improved this shift. Original Note: Pt only alert to self Pt has been calmer today with no behaviors to note. has been at bedside most of shift. Temp did reach 101.4 today but was relieved by tylenol to 97.7. He got up in bedside chair today and has been ambulating with assist x1. Pt now resting in bed with no complaints at this time. Call light in reach, bed alarm on.
[2024-07-24] MEDS: TAMSULOSIN 0.4MG CAPSULE 0.4 MG PO (20:31)
[2024-07-24] MEDS: ATORVASTATIN 40MG TABLET 40 MG PO (20:31)
[2024-07-24] MEDS: PANTOPRAZOLE 40MG TABLET 40 MG PO (20:31)
[2024-07-25] VITALS (9 sets, daily range): BP systolic 141–154; BP diastolic 75–111; PULSE 60–101; RESP 16–20; TEMP 36.7–37.6; O2SAT 94–96; BMI 28.5
[2024-07-25 01:44] LABS: Albumin, U 87.8 ug/mL (Not Estab.); Albumin/Creatinine Ratio 51 mg/g creat (0-29)
[2024-07-25] MEDS: PIPERCILLIN/TAZO 3.375 GM in 0.9 % SODIUM CHLORIDE 50 ML IV ×3 (04:01→21:57)
[2024-07-25 07:56] LABS: Basophils % 0.7 % (0.1-2.0); Eosinophils # 0.1 K/mm3 (0.0-0.4); Eosinophils % 1.7 % (0.1-12.0); Hematocrit 46.9 % (42.0-52.0); Hemoglobin 16.2 g/dL (14.1-18.0); Lymphocytes # 0.8 K/mm3 (0.7-4.5); Lymphocytes % 19.1 % (10-50); Mean Corpuscular HGB Conc 34.5 g/dL (31.8-35.4); Mean Corpuscular Hemoglobin 28.8 pg (27.0-31.2); Mean Corpuscular Volume 83.3 fl (80-94); Mean Platelet Volume 11.8 fl (7.4-10.4); Monocytes # 0.5 K/mm3 (0.1-1.0); Monocytes % 12.3 % (1.7-9.3); Neutrophils # 2.7 K/mm3 (1.8-7.8); Neutrophils % 65.7 % (37.0-80.0); Platelet Count 91 K/mm3 (142-424); Red Blood Count 5.63 M/mm3 (4.60-6.20); Red Cell Distribution Width 14.1 % (11.5-17.5); White Blood Count 4.1 K/mm3 (4.8-10.8)
[2024-07-25 08:07] LABS: Alanine Aminotransferase 74 U/L (12-78); Albumin Level 3.3 g/dl (3.5-5.0); Albumin/Globulin Ratio 1.3 (1.1-1.8); Alkaline Phosphatase 54 U/L (38-126); Anion Gap 12.4 mEq/L (5-15); Aspartate Amino Transferase 79 U/L (17-59); Bilirubin,Total 0.9 mg/dl (0.2-1.3); Blood Urea Nitrogen 20 mg/dl (9-20); Calcium 8.9 mg/dl (8.4-10.2); Carbon Dioxide 23 mmol/L (22.0-30.0); Chloride 99 mmol/L (98-107); Creatinine Clearance Estimated 69 mL/min (50-200); Estimated Glomerular Filt Rate 55 ml/min (>60); GFR (African American) 67 ML/MIN (>60); Globulin 2.5 g/dL (1.3-3.2); Glucose 127 mg/dl (74-100); Potassium 3.4 mmoL/L (3.5-5.1); Sodium 131 mmol/L (136-145); Total Protein,Serum 5.8 g/dl (6.3-8.2)
[2024-07-25 08:18] LABS: Erythrocyte Sedimentation Rate 3 mm/hr (0-20)
[2024-07-25] MEDS: ASPIRIN EC 81MG TABLET 81 MG PO (08:41)
[2024-07-25] MEDS: IRBESARTAN 150MG TAB 150 MG PO (08:41)
[2024-07-25] MEDS: CLOPIDOGREL 75MG TAB 75 MG PO (08:41)
[2024-07-25] MEDS: POTASSIUM CHLORIDE 20MEQ TAB 40 MEQ PO (09:39)
[2024-07-25 10:20] LABS: Procalcitonin 0.482 ng/mL (0.0-2.0)
[2024-07-25] MEDS: POLYETHYLENE GLYCOL 3350 17 GM PACKET PO (11:35)
[2024-07-25 12:54] LABS: Creatine Kinase 416 U/L (55-170)
[2024-07-25] MEDS: PANTOPRAZOLE 40MG TABLET 40 MG PO (20:39)
[2024-07-25] MEDS: TAMSULOSIN 0.4MG CAPSULE 0.4 MG PO (20:39)
[2024-07-25] MEDS: ATORVASTATIN 40MG TABLET 40 MG PO (20:39)
--- NOTE | 2024-07-25 21:50 | P.PN_ITS ---
Subjective *Date: 07/25/24 *Time: 21:50 Interval history: Patient doing better today, no fevers. States he feels better. Pending placement. Exam Data for Last 24 hours Vital signs and Labs for Last 24 Hours: Temp Pulse Resp BP Pulse Ox O2 Del Method 98.6 F 65 18 149/111 H 95 Room Air 07/25/24 20:00 07/25/24 20:00 07/25/24 20:00 07/25/24 20:00 07/25/24 20:00 07/25/24 20:00 Laboratory Results - last 24 hr 07/22/24 19:28: Urine Creatinine 172.0, Urine Albumin 87.8 07/25/24 07:15: WBC 4.1 L, RBC 5.63, Hgb 16.2, Hct 46.9, MCV 83.3, MCH 28.8, MCHC 34.5, RDW 14.1, Plt Count 91 L, MPV 11.8 H, Neut % (Auto) 65.7, Lymph % (Auto) 19.1, [place] % (Auto) 12.3 H, Eos % (Auto) 1.7, Baso % (Auto) 0.7, Neut # (Auto) 2.7, Lymph # (Auto) 0.8, [place] # (Auto) 0.5, Eos # (Auto) 0.1, Baso # (Auto) 0.0, ESR 3, Sodium 131 L, Potassium 3.4 L D, Chloride 99, Carbon Dioxide 23, Anion Gap 12.4, BUN 20 D, Creatinine 1.30 H D, Estimated Creat Clear 69, Estimated GFR 55 L, Est GFR ( Amer) 67 D, Glucose 127 H, Calcium 8.9, Magnesium 2.0, Total Bilirubin 0.9, AST 79 H, ALT 74, Alkaline Phosphatase 54, Total Creatine Kinase 416 H D, C-Reactive Protein 63.0 H, Total Protein 5.8 L, Albumin 3.3 L, Globulin 2.5, Albumin/Globulin Ratio 1.3, Procalcitonin 0.482 I & O for Last 24 hours: Intake & Output 07/22/24 07/23/24 07/24/24 07/25/24 23:59 23:59 23:59 23:59 Intake Total 1620 / 2320 1260 / 1430 1260 / 1260 Output Total 0 / 0 0 / 0 0 / 0 Balance 1620 / 2320 1260 / 1430 1260 / 1260 Weight 79.379 kg 79.37 kg 88.813 kg 87.362 kg Microbiology Reports for the Last 24 Hours: Microbiology 07/24/24 16:45 Blood Blood Culture - Preliminary NO GROWTH AFTER 24 HOURS 07/24/24 16:55 Blood Blood Culture - Preliminary NO GROWTH AFTER 24 HOURS Constitutional Constitutional: no acute distress *Routine HEENT Exam Head: Present normocephalic Eye: Present EOMI and PERRL ENT: Present mucous membranes moist *Routine Neck Exam Neck: Present supple; Absent lymphadenopathy *Routine Respiratory Exam Respiratory: Present CTA bilaterally *Routine Cardiovascular Exam Cardiovascular: Present RRR *Routine Abdominal Exam Abdominal: Present soft and normoactive bowel sounds; Absent tenderness *Routine Extremities Exam Extremities: Absent cyanosis, clubbing or edema Comments: Lower extremity weakness 3/5 bilateral. *Routine Skin Exam Skin: Present warm; Absent rash *Routine Neurological Exam Neurological: Present alert Assessment and Plan *Assessment and plan (1) Confusion: Status: Acute Category: Medical Code(s): R41.0 - Disorientation, unspecified (2) [place] (acute kidney injury): Status: Acute Category: Medical Code(s): N17.9 - Acute kidney failure, unspecified (3) Elevated brain natriuretic peptide (BNP) level: Status: Acute Category: Medical Code(s): R79.89 - Other specified abnormal findings of blood chemistry (4) Hypertensive urgency: Status: Acute Category: Medical Code(s): I16.0 - Hypertensive urgency (5) Weakness: Status: Acute Category: Medical Code(s): R53.1 - Weakness (6) Polycythemia: Status: Acute Category: Medical Code(s): D75.1 - Secondary polycythemia (7) Dehydration: Status: Acute Category: Medical Code(s): E86.0 - Dehydration (8) Coagulation defect: Status: Acute Category: Medical Code(s): D68.9 - Coagulation defect, unspecified (9) CVA (cerebral vascular accident): Status: Acute Category: Medical Code(s): I63.9 - Cerebral infarction, unspecified Plan Kelvin Lockhart is a 64-year-old male with a medical history significant for uncontrolled hypertension, medical nonadherence who presented with worsening shuffling gait, confusion, falls and was admitted for further evaluation of the symptoms. #Multiple strokes, chronic #Shuffling gait #Lower extremity weakness ? states patient has had 1 year onset of lower extremity weakness, shuffling gait in addition to slurred speech. She notes patient has refused to seek medical evaluation for the symptoms. ? Brain MRI 07/23/2024 revealed extensive areas of chronic ischemia in the white matter, basal cannula, michelle slightly worse on the left than the right. No acute findings however. ? CTA head/neck did not show stenosis or large vessel occlusion. ECHO report pending. ? Extensively discussed findings with patient and his , including risk factors, and they both acknowledged understanding. Patient was amenable to surekha ating risk factors and starting treatment. ? Risk factors include chronic tobacco smoking, uncontrolled hypertension. A1c and LDL normal. ? Continue aspirin 81 mg, Plavix 75 mg, atorvastatin 40 mg. ? PT/OT consulted, recommended SNF. Discussed with case management, assisting with placement. ? Low suspicion for Parkinson's disease as there is no signs of akathisia, cogwheel rigidity. #Fever of unknown origin ? Temperature of 101.4 on 07/16/2024, patient stated he is asymptomatic. ? Respiratory panel, procalcitonin negative. CRP 63, ESR normal. No leukocytosis. ? CT abdomen/pelvis, chest did not show acute infectious findings. ? Cultures, UA normal. Discontinue Zosyn. #Hypertension ? Continue irbesartan 150 mg daily. ? Started amlodipine 5 mg due to persistent elevated pressures. #[place] #Rhabdomyolysis ? Initial creatinine 1.6, CK 4494. ? Improved to 0.9 with IV and oral fluid resuscitation. CK improving to 416. #Elevated BNP, troponin ? BNP 1989, troponin plateaued at 0.05. ? Likely representing NSTEMI type II in the setting of hypovolemia, rhabdomyolysis. ? Follow-up ECHO. Full code DVT prophylaxis: Holding in the setting of thrombocytopenia platelets 94. SCDs
[2024-07-26 04:00] VITALS: BP 153/91; PULSE 67; RESP 19; TEMP 36.8; O2SAT 94; BMI 26.9
--- NOTE | 2024-07-26 04:03 | PC.NURSE ---
Patient is alert to himself and could correctly recite his birthday upon assessment. Flat affect noticed. However, the patient has remained confused throughout the shift, occasionally becoming ill-tempered with staff. Overall, the patient has been cooperative with his care. He was observed to have wakeful periods and resting periods (eyes closed, respirations even/unlabored on room air) throughout the night. His has remained at the bedside. NIH screen (-) and neuro-vascular status-COMA scale has been 14 each time. Patient occasionally has incontinent episodes (stool/urine). Scheduled medications were administered as appropriately per JUN. Upon auscultation of his lungs, diminished sounds were heard. Heart rate regular and bowel sounds were hyperactive. Patient has been requiring at least x1 assistance during transfers/ambulation due to unsteadiness. At this time, the patient is resting in bed without any further complaints. Blood pressures have been elevated. No acute changes noted. Bed alarm on. Call light within reach.
[2024-07-26] MEDS: PIPERCILLIN/TAZO 3.375 GM in 0.9 % SODIUM CHLORIDE 50 ML IV (05:42)
[2024-07-26 07:04] LABS: Basophils % 0.9 % (0.1-2.0); Eosinophils # 0.2 K/mm3 (0.0-0.4); Eosinophils % 3.7 % (0.1-12.0); Hematocrit 45.1 % (42.0-52.0); Hemoglobin 15.5 g/dL (14.1-18.0); Lymphocytes # 1.4 K/mm3 (0.7-4.5); Lymphocytes % 31.3 % (10-50); Mean Corpuscular HGB Conc 34.4 g/dL (31.8-35.4); Mean Corpuscular Hemoglobin 28.8 pg (27.0-31.2); Mean Corpuscular Volume 83.8 fl (80-94); Mean Platelet Volume 12.1 fl (7.4-10.4); Monocytes # 0.6 K/mm3 (0.1-1.0); Monocytes % 13.7 % (1.7-9.3); Neutrophils # 2.2 K/mm3 (1.8-7.8); Neutrophils % 49.9 % (37.0-80.0); Platelet Count 110 K/mm3 (142-424); Red Blood Count 5.38 M/mm3 (4.60-6.20); Red Cell Distribution Width 14.3 % (11.5-17.5); White Blood Count 4.4 K/mm3 (4.8-10.8)
[2024-07-26 07:10] LABS: Albumin Level 3.2 g/dl (3.5-5.0); Chloride 103 mmol/L (98-107); Sodium 134 mmol/L (136-145)
[2024-07-26 07:11] LABS: Potassium 3.8 mmoL/L (3.5-5.1)
[2024-07-26 07:13] LABS: Alanine Aminotransferase 81 U/L (12-78); Albumin/Globulin Ratio 1.5 (1.1-1.8); Alkaline Phosphatase 61 U/L (38-126); Anion Gap 8.8 mEq/L (5-15); Aspartate Amino Transferase 91 U/L (17-59); Bilirubin,Total 0.7 mg/dl (0.2-1.3); Blood Urea Nitrogen 19 mg/dl (9-20); Calcium 8.1 mg/dl (8.4-10.2); Carbon Dioxide 26 mmol/L (22.0-30.0); Creatine Kinase 186 U/L (55-170); Creatinine Clearance Estimated 71 mL/min (50-200); Estimated Glomerular Filt Rate 61 ml/min (>60); GFR (African American) 73 ML/MIN (>60); Globulin 2.1 g/dL (1.3-3.2); Glucose 105 mg/dl (74-100); Total Protein,Serum 5.3 g/dl (6.3-8.2)
[2024-07-26 07:21] LABS: C-Reactive Protein 41.7 mg/L (0-4)
[2024-07-26 07:33] LABS: Erythrocyte Sedimentation Rate 4 mm/hr (0-20)
[2024-07-26 08:00] VITALS: BP 145/101; PULSE 106; RESP 18; O2SAT 94
--- NOTE | 2024-07-26 09:03 | PC.NURSE ---
Nurse notified of high B/P.
[2024-07-26] MEDS: ACETAMINOPHEN 325MG TAB 650 MG PO (09:29)
[2024-07-26] MEDS: POLYETHYLENE GLYCOL 3350 17 GM PACKET PO (09:29)
[2024-07-26] MEDS: CLOPIDOGREL 75MG TAB 75 MG PO (09:29)
[2024-07-26] MEDS: IRBESARTAN 150MG TAB 150 MG PO (09:29)
[2024-07-26] MEDS: ASPIRIN EC 81MG TABLET 81 MG PO (09:29)
[2024-07-26] MEDS: MILK OF MAGNESIA 30ML UDC 30 ML PO (11:45)
--- NOTE | 2024-07-26 14:44 | PC.NURSE ---
Aox 2 with confusion, agitated easily at times, up with assistance times one with a walker for safety, on RA, bed alarm active, 22g R FA SL, PT and OT following patient, cardiac diet, CM working on placement.
[2024-07-26 16:00] VITALS: BP 133/64; PULSE 54; RESP 17; TEMP 36.8; O2SAT 94
--- NOTE | 2024-07-26 16:35 | PC.NURSE ---
Pt's states she will call out when her needs to get up out of the bed while here. Alarm of for now at request.
--- NOTE | 2024-07-26 20:11 | EXP.PN ---
Subjective *Date: 07/27/24 *Time: 01:00 Interval history: Patient continues to be intermittently agitated, otherwise no other concerns. Pending placement. Exam Data for Last 24 hours Vital signs and Labs for Last 24 Hours: Temp Pulse Resp BP Pulse Ox O2 Del Method 98.3 F 54 L 17 133/64 94 L Room Air 07/26/24 16:00 07/26/24 16:00 07/26/24 16:00 07/26/24 16:00 07/26/24 16:00 07/26/24 17:43 Laboratory Results - last 24 hr 07/26/24 06:06: WBC 4.4 L, RBC 5.38, Hgb 15.5, Hct 45.1, MCV 83.8, MCH 28.8, MCHC 34.4, RDW 14.3, Plt Count 110 L, MPV 12.1 H, Neut % (Auto) 49.9, Lymph % (Auto) 31.3, [place] % (Auto) 13.7 H, Eos % (Auto) 3.7, Baso % (Auto) 0.9, Neut # (Auto) 2.2, Lymph # (Auto) 1.4, [place] # (Auto) 0.6, Eos # (Auto) 0.2, Baso # (Auto) 0.0, ESR 4, Sodium 134 L, Potassium 3.8, Chloride 103, Carbon Dioxide 26, Anion Gap 8.8, BUN 19, Creatinine 1.20, Estimated Creat Clear 71, Estimated GFR 61, Est GFR ( Amer) 73, Glucose 105 H, Calcium 8.1 L, Magnesium 2.0, Total Bilirubin 0.7, AST 91 H, ALT 81 H, Alkaline Phosphatase 61, Total Creatine Kinase 186 H D, C-Reactive Protein 41.7 H D, Total Protein 5.3 L, Albumin 3.2 L, Globulin 2.1, Albumin/Globulin Ratio 1.5 I & O for Last 24 hours: Intake & Output 07/23/24 07/24/24 07/25/24 07/26/24 23:59 23:59 23:59 23:59 Intake Total 1620 / 2320 1260 / 1430 1260 / 1510 970 / 970 Output Total 0 / 0 0 / 0 0 / 0 0 / 0 Balance 1620 / 2320 1260 / 1430 1260 / 1510 970 / 970 Weight 79.37 kg 88.813 kg 87.362 kg 82.645 kg Microbiology Reports for the Last 24 Hours: Microbiology 07/24/24 16:55 Blood Blood Culture - Preliminary NO GROWTH AFTER 48 HOURS 07/24/24 16:45 Blood Blood Culture - Preliminary NO GROWTH AFTER 48 HOURS Constitutional Constitutional: no acute distress *Routine HEENT Exam Head: Present normocephalic Eye: Present EOMI and PERRL ENT: Present mucous membranes moist *Routine Neck Exam Neck: Present supple; Absent lymphadenopathy *Routine Respiratory Exam Respiratory: Present CTA bilaterally *Routine Cardiovascular Exam Cardiovascular: Present RRR *Routine Abdominal Exam Abdominal: Present soft and normoactive bowel sounds; Absent tenderness *Routine Extremities Exam Extremities: Absent cyanosis, clubbing or edema Comments: Lower extremity weakness 3/5 bilateral. *Routine Skin Exam Skin: Present warm; Absent rash *Routine Neurological Exam Neurological: Present alert Assessment and Plan *Assessment and plan (1) Confusion: Status: Acute Category: Medical Code(s): R41.0 - Disorientation, unspecified (2) [place] (acute kidney injury): Status: Acute Category: Medical Code(s): N17.9 - Acute kidney failure, unspecified (3) Elevated brain natriuretic peptide (BNP) level: Status: Acute Category: Medical Code(s): R79.89 - Other specified abnormal findings of blood chemistry (4) Hypertensive urgency: Status: Acute Category: Medical Code(s): I16.0 - Hypertensive urgency (5) Weakness: Status: Acute Category: Medical Code(s): R53.1 - Weakness (6) Polycythemia: Status: Acute Category: Medical Code(s): D75.1 - Secondary polycythemia (7) Dehydration: Status: Acute Category: Medical Code(s): E86.0 - Dehydration (8) Coagulation defect: Status: Acute Category: Medical Code(s): D68.9 - Coagulation defect, unspecified (9) CVA (cerebral vascular accident): Status: Acute Category: Medical Code(s): I63.9 - Cerebral infarction, unspecified Plan Kelvin Lockhart is a 64-year-old male with a medical history significant for uncontrolled hypertension, medical nonadherence who presented with worsening shuffling gait, confusion, falls and was admitted for further evaluation of the symptoms. #Multiple strokes, chronic #Shuffling gait #Lower extremity weakness ? states patient has had 1 year onset of lower extremity weakness, shuffling gait in addition to slurred speech. She notes patient has refused to seek medical evaluation for the symptoms. ? Brain MRI 07/23/2024 revealed extensive areas of chronic ischemia in the white matter, basal cannula, michelle slightly worse on the left than the right. No acute findings however. ? CTA head/neck did not show stenosis or large vessel occlusion. ECHO report pending. ? Extensively discussed findings with patient and his , including risk factors, and they both acknowledged understanding. Patient was amenable to treating risk factors and starting treatment. ? Risk factors include chronic tobacco smoking, uncontrolled hypertension. A1c and LDL normal. ? Continue aspirin 81 mg, Plavix 75 mg, atorvastatin 40 mg. ? PT/OT consulted, recommended SNF. Discussed with case management, assisting with placement. ? Low suspicion for Parkinson's disease as there is no signs of tremors, bradykinesia, cogwheel rigidity. #Fever of unknown origin ? Temperature of 101.4 on 07/16/2024, patient stated he is asymptomatic. ? Respiratory panel, procalcitonin negative. CRP 63, ESR normal. No leukocytosis. ? CT abdomen/pelvis, chest did not show acute infectious findings. ? Cultures, UA normal. Discontinued Zosyn. #Hypertension ? Continue irbesartan 150 mg daily, amlodipine 5 mg. Started during admission. #[place] #Rhabdomyolysis ? Initial creatinine 1.6, CK 4494. ? Improved to 0.9 with IV and oral fluid resuscitation. CK improving to 96. #Elevated BNP, troponin ? BNP 1989, troponin plateaued at 0.05. ? Likely representing NSTEMI type II in the setting of hypovolemia, rhabdomyolysis. ? ECHO shows low normal LV systolic function. Full code DVT prophylaxis: Holding in the setting of thrombocytopenia platelets 94. SCDs
[2024-07-26] MEDS: PANTOPRAZOLE 40MG TABLET 40 MG PO (21:54)
[2024-07-26] MEDS: TAMSULOSIN 0.4MG CAPSULE 0.4 MG PO (21:54)
[2024-07-26] MEDS: ATORVASTATIN 40MG TABLET 40 MG PO (21:54)
[2024-07-27 04:00] VITALS: BP 160/77; PULSE 59; RESP 14; TEMP 36.9; O2SAT 95; BMI 26.9
[2024-07-27 06:42] LABS: Basophils # 0.1 K/mm3 (0-0.2); Basophils % 1.3 % (0.1-2.0); Eosinophils # 0.2 K/mm3 (0.0-0.4); Eosinophils % 2.6 % (0.1-12.0); Hemoglobin 16.3 g/dL (14.1-18.0); Lymphocytes # 2.9 K/mm3 (0.7-4.5); Lymphocytes % 42.3 % (10-50); Mean Corpuscular Volume 85.4 fl (80-94); Mean Platelet Volume 11.9 fl (7.4-10.4); Monocytes # 0.7 K/mm3 (0.1-1.0); Monocytes % 9.8 % (1.7-9.3); Platelet Count 155 K/mm3 (142-424); Red Blood Count 5.62 M/mm3 (4.60-6.20); Red Cell Distribution Width 14.6 % (11.5-17.5); White Blood Count 6.8 K/mm3 (4.8-10.8)
[2024-07-27 06:46] LABS: Albumin Level 3.6 g/dl (3.5-5.0); Chloride 106 mmol/L (98-107); Potassium 4.3 mmoL/L (3.5-5.1); Sodium 139 mmol/L (136-145)
[2024-07-27 06:49] LABS: Alanine Aminotransferase 128 U/L (12-78); Albumin/Globulin Ratio 1.5 (1.1-1.8); Alkaline Phosphatase 68 U/L (38-126); Anion Gap 11.3 mEq/L (5-15); Aspartate Amino Transferase 134 U/L (17-59); Bilirubin,Total 0.8 mg/dl (0.2-1.3); Blood Urea Nitrogen 20 mg/dl (9-20); Carbon Dioxide 26 mmol/L (22.0-30.0); Creatinine Clearance Estimated 65 mL/min (50-200); Estimated Glomerular Filt Rate 55 ml/min (>60); GFR (African American) 67 ML/MIN (>60); Globulin 2.4 g/dL (1.3-3.2)
[2024-07-27 06:50] LABS: Calcium 8.7 mg/dl (8.4-10.2); Glucose 108 mg/dl (74-100)
[2024-07-27 06:55] LABS: C-Reactive Protein 29.6 mg/L (0-4)
--- NOTE | 2024-07-27 07:02 | PC.NURSE ---
Pt is alert to person and sometimes place. Pt becomes aggressive with staff when attempting to help pt to bathroom or clean him up. Pt has slept well throughout shift. Bed alarm on for pt safety. Call light within reach.
[2024-07-27 07:58] LABS: Erythrocyte Sedimentation Rate 9 mm/hr (0-20)
[2024-07-27 08:00] VITALS: BP 159/76; PULSE 56; RESP 16; TEMP 36.7; O2SAT 95
[2024-07-27 08:56] LABS: Creatine Kinase 117 U/L (55-170)
[2024-07-27 09:09] LABS: Magnesium 2.2 mg/dl (1.6-2.3)
[2024-07-27] MEDS: ASPIRIN EC 81MG TABLET 81 MG PO (09:34)
[2024-07-27] MEDS: CLOPIDOGREL 75MG TAB 75 MG PO (09:34)
[2024-07-27] MEDS: POLYETHYLENE GLYCOL 3350 17 GM PACKET PO (09:34)
[2024-07-27] MEDS: IRBESARTAN 150MG TAB 150 MG PO (09:34)
--- NOTE | 2024-07-27 10:57 | P.DS_ITS ---
General Admission date:: 07/23/24 Discharge date: 07/27/24 HPI HPI HPI: This is a 64-year-old male who has a past medical history significant for hypertension that is been untreated who presents with a chief complaint of physical decline, shuffling gait, and confusion. Due to patient's symptoms, he presented to the emergency room for evaluation. 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 Patient still had some weakness, so he has been admitted for further management for stroke rule out. During my evaluation of the patient, spouse at the bedside states that patient has had progressive shuffling gait and weakness that is been ongoing for greater than 6 months. She states he has been having some confusion where he would get confused of date and time. Over the last 24 to 48 hours, patient has been bed ridden. She states patient has had a decreased p.o. intake and is only drinking Mountain Dew for hydration. 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 He was prescribed antihypertensives, but patient did not take the medications. He has been untreated for hypertension since that timeframe. Patient himself is voicing no chest pain, lightheadedness, dizziness, fever, chills, rigors, shortness of breath, dyspnea, nausea, vomiting, or diarrhea. CTA of the head and neck was negative for any cerebrovascular stenosis or occlusion. Additional pertinent vitals obtained include a red blood cell count of 6.23, hemoglobin 18.6, hematocrit of 53.7, platelet count of 119, INR 1.21, BUN of 24, creatinine 1.60, GFR 43, AST of 116, troponin 0.05, C-reactive protein is 69, and BNP of 1990. It is worth mentioning that patient has not been evaluated by a healthcare provider since 2013. Hospital Course Hospital Course Hospital Course: Kelvin Lockhart is a 64-year-old male with a medical history significant for uncontrolled hypertension, medical nonadherence who presented with worsening shuffling gait, confusion, falls and was admitted for further evaluation of the symptoms. Patient showed gradual improvement during admission. Blood pressure showed improvement with initiation of treatment. Therapy evaluated, recommend SNF for rehab. Discharge to [facility] in [place] after insurance approval. Stable to discharge at this time. Problems addressed as follows: #Multiple strokes, chronic #Shuffling gait #Lower extremity weakness ? states patient has had 1 year onset of lower extremity weakness, shuffling gait in addition to slurred speech. She notes patient has refused to seek medical evaluation for the symptoms. ? Brain MRI 07/23/2024 revealed extensive areas of chronic ischemia in the white matter, basal ganglia, michelle slightly worse on the left than the right. No acute findings however. ? CTA head/neck did not show stenosis or large vessel occlusion. ECHO report pending. ? Extensively discussed findings with patient and his , including risk factors, and they both acknowledged understanding. Patient was amenable to treating risk factors and starting treatment. ? Risk factors include chronic tobacco smoking, uncontrolled hypertension. A1c and LDL normal. ? Continue aspirin 81 mg, Plavix 75 mg, atorvastatin 40 mg. ? PT/OT consulted, recommended SNF. Discussed with case management, assisting with placement. ? Low suspicion for Parkinson's disease as there is no signs of tremors, bradykinesia, cogwheel rigidity. #Fever of unknown origin ? Temperature of 101.4 on 07/16/2024, patient stated he is asymptomatic. Workup was unremarkable. Cultures remain negative. Respiratory panel was negative. Procalcitonin was negative. CRP was elevated to 69 and improved to 29 by day of discharge. ESR was normal. Had no leukocytosis. White count normal on day of discharge at 6.8. Was initially on antibiotics, discontinued after cultures returned negative. No signs of infection at this time. No further fever #Hypertension ? Continue irbesartan 150 mg daily. Started during admission. Blood pressure somewhat improved with systolics 140-150s over diastolics of 70s on day of discharge #[place] #Rhabdomyolysis ? Initial creatinine 1.6, CK 4494. Creatinine improved to 0.9. Stabilized with BUN of 20, creatinine 1.3 on day of discharge. CK normalized. Tolerating p.o. intake. #Elevated BNP, troponin ? BNP 1989, troponin plateaued at 0.05. Likely representing NSTEMI type II in the setting of hypovolemia, rhabdomyolysis. ECHO shows low normal LV systolic function. Total time spent on discharge 38 minutes in counseling, documentation, chart review, and direct care with patient. Exam Data for Last 24 hours Vital signs and Labs for Last 24 Hours: Temp Pulse Resp BP Pulse Ox O2 Del Method 98.1 F 56 L 16 159/76 H 95 Room Air 07/27/24 08:00 07/27/24 08:00 07/27/24 08:00 07/27/24 08:00 07/27/24 08:00 07/27/24 10:50 Laboratory Results - last 24 hr 07/27/24 05:55: WBC 6.8 D, RBC 5.62, Hgb 16.3, Hct 48.0, MCV 85.4, MCH 29.0, MCHC 34.0, RDW 14.6, Plt Count 155 D, MPV 11.9 H, Neut % (Auto) 44.0, Lymph % (Auto) 42.3, [place] % (Auto) 9.8 H, Eos % (Auto) 2.6, Baso % (Auto) 1.3, Neut # (Auto) 3.0, Lymph # (Auto) 2.9, [place] # (Auto) 0.7, Eos # (Auto) 0.2, Baso # (Auto) 0.1, ESR 9, Sodium 139, Potassium 4.3, Chloride 106, Carbon Dioxide 26, Anion Gap 11.3, BUN 20, Creatinine 1.30 H, Estimated Creat Clear 65, Estimated GFR 55 L, Est GFR ( Amer) 67, Glucose 108 H, Calcium 8.7, Magnesium 2.2, Total Bilirubin 0.8, AST 134 H D, ALT 128 H D, Alkaline Phosphatase 68, Total Creatine Kinase 117 D, C-Reactive Protein 29.6 H D, Total Protein 6.0 L, Albumin 3.6 D, Globulin 2.4, Albumin/Globulin Ratio 1.5 I & O for Last 24 hours: Intake & Output 07/24/24 07/25/24 07/26/24 07/27/24 23:59 23:59 23:59 23:59 Intake Total 1260 / 1430 1260 / 1510 970 / 970 120 / 120 Output Total 0 / 0 0 / 0 0 / 0 Balance 1260 / 1430 1260 / 1510 970 / 970 120 / 120 Weight 88.813 kg 87.362 kg 82.645 kg 82.645 kg Microbiology Reports for the Last 24 Hours: Microbiology 07/24/24 16:55 Blood Blood Culture - Preliminary NO GROWTH AFTER 48 HOURS 07/24/24 16:45 Blood Blood Culture - Preliminary NO GROWTH AFTER 48 HOURS Constitutional Constitutional: no acute distress, average body habitus and chronically ill appearing *Routine HEENT Exam Head: Present normocephalic Eye: Present EOMI and PERRL ENT: Present mucous membranes moist *Routine Neck Exam Neck: Present supple; Absent lymphadenopathy *Routine Respiratory Exam Respiratory: Present CTA bilaterally; Absent respiratory distress, rhonchi, wheezes or crackles *Routine Cardiovascular Exam Cardiovascular: Present RRR *Routine Abdominal Exam Abdominal: Present soft and normoactive bowel sounds; Absent tenderness *Routine Rectal Exam Patient deferred: visual exam *Routine Exam Patient deferred: penile exam *Routine Extremities Exam Extremities: Absent cyanosis, clubbing or edema Comments: Lower extremity weakness 3/5 bilateral. *Routine Skin Exam Skin: Present intact and warm; Absent rash *Routine Neurological Exam Neurological: Present alert and moving all extremities; Absent altered mental status Comments: oriented to self and place Results Data Completed and Pending Labs on day of discharge: Labs from last 24 hours 07/27/24 05:55 WBC 6.8 D RBC 5.62 Hgb 16.3 Hct 48.0 MCV 85.4 MCH 29.0 MCHC 34.0 RDW 14.6 Plt Count 155 D MPV 11.9 H Neut % (Auto) 44.0 Lymph % (Auto) 42.3 [place] % (Auto) 9.8 H Eos % (Auto) 2.6 Baso % (Auto) 1.3 Neut # (Auto) 3.0 Lymph # (Auto) 2.9 [place] # (Auto) 0.7 Eos # (Auto) 0.2 Baso # (Auto) 0.1 ESR 9 Sodium 139 Potassium 4.3 Chloride 106 Carbon Dioxide 26 Anion Gap 11.3 BUN 20 Creatinine 1.30 H Estimated Creat Clear 65 Estimated GFR 55 L Est GFR ( Amer) 67 Glucose 108 H Calcium 8.7 Magnesium 2.2 Total Bilirubin 0.8 AST 134 H D ALT 128 H D Alkaline Phosphatase 68 Total Creatine Kinase 117 D C-Reactive Protein 29.6 H D Total Protein 6.0 L Albumin 3.6 D Globulin 2.4 Albumin/Globulin Ratio 1.5 Preliminary micro results at discharge 07/24/24 16:55 Blood Culture - Preliminary Blood NO GROWTH AFTER 48 HOURS 07/24/24 16:45 Blood Culture - Preliminary Blood NO GROWTH AFTER 48 HOURS DS: Diagnosis Discharge Diagnosis (1) Confusion: Status: Acute Code(s): R41.0 - Disorientation, unspecified (2) [place] (acute kidney injury): Status: Acute Code(s): N17.9 - Acute kidney failure, unspecified (3) Elevated brain natriuretic peptide (BNP) level: Status: Acute Code(s): R79.89 - Other specified abnormal findings of blood chemistry (4) Hypertensive urgency: Status: Acute Code(s): I16.0 - Hypertensive urgency (5) Weakness: Status: Acute Code(s): R53.1 - Weakness (6) Polycythemia: Status: Acute Code(s): D75.1 - Secondary polycythemia (7) Dehydration: Status: Acute Code(s): E86.0 - Dehydration (8) Coagulation defect: Status: Acute Code(s): D68.9 - Coagulation defect, unspecified (9) CVA (cerebral vascular accident): Status: Acute Code(s): I63.9 - Cerebral infarction, unspecified Meds Home Medications and Allergies Home Medications ?Medication ?Instructions ?Recorded ?Confirmed ?Type aspirin 81 mg tablet,delayed 81 mg PO DAILY 30 days #30 tabs 07/27/24 Rx release atorvastatin 40 mg tablet 40 mg PO HS 30 days #30 tabs 07/27/24 Rx clopidogrel 75 mg tablet 75 mg PO DAILY 30 days #30 tabs 07/27/24 Rx irbesartan 150 mg tablet 150 mg PO DAILY 30 days #30 tabs 07/27/24 Rx pantoprazole 40 mg tablet,delayed 40 mg PO HS 30 days #30 tabs 07/27/24 Rx release tamsulosin 0.4 mg capsule 0.4 mg PO HS 30 days #30 caps 07/27/24 Rx New Prescriptions to Start Prescriptions: aspirin Tiffanie,Leonidas atorvastatin Tiffanie,Leonidas clopidogrel Tiffanie,Leonidas irbesartan Tiffanie,Leonidas pantoprazole Tiffanie,Leonidas tamsulosin Leonidas Moreno Allergies Allergy/AdvReac Type Severity Reaction Status Date / Time No Known Allergies Allergy Verified 07/22/24 16:55 Discharge Plan Disposition Patient Disposition: [facility] Condition: Fair Discharge Order Discharge Orders: Discharge Order (Routine); Ordered 07/27/24 Ordered By: Leonidas Moreno Follow up Plan Follow up with: Dirk Darling DO [Staff Physician] - 07/29/24 10:30 am Prescriptions/Medication Reconciliation: New atorvastatin 40 mg Tablet 40 mg PO HS 30 Days Qty: 30 0RF clopidogrel 75 mg Tablet 75 mg PO DAILY 30 Days Qty: 30 0RF aspirin 81 mg Tablet,Delayed Release (Dr/Ec) 81 mg PO DAILY 30 Days Qty: 30 0RF tamsulosin 0.4 mg Capsule 0.4 mg PO HS 30 Days Qty: 30 0RF pantoprazole 40 mg Tablet,Delayed Release (Dr/Ec) 40 mg PO HS 30 Days Qty: 30 0RF irbesartan 150 mg Tablet 150 mg PO DAILY 30 Days Qty: 30 0RF Problem Reconciliation Problems Reviewed?: Yes Patient Discharge Instructions ACTIVITY: Continue current activity DIET: continue same diet Patient Instructions: Acute Kidney Injury, DI for Rhabdomyolysis Print Language: Mongolian Providers Primary Care Provider: Provider,Referral Admit Provider: Octavio Jose Attending Provider: Octavio Jose
--- NOTE | 2024-07-27 14:32 | SW/DCPLANNER ---
Spoke with patients regarding home health services for her . stated that she would like to discuss and get back with me tomorrow on home health services. Patria MUNOZ Chief Nursing Officer
--- NOTE | 2024-07-28 10:11 | SW/DCPLANNER ---
Addendum entered by Saarh Venegas 07/28/24 13:23: [facility] was able to accept patient. Patria Jean Original Note: Spoke with patients on the phone. Patients stated that he is doing well. Patients stated that she is aware of his upcoming appointments. 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 Patient stated that she has no concerns or questions at this time. Patria Jean Spoke with patients about home health services and she asked me what all does that involve. Patients stated that she is interested in it for her . Patients had no preference as to which home health agency. I faxed patients info to [facility] and will update once i hear back from them. ' Patria Jean
[2024-07-28 15:14] LABS: Zinc 41 ug/dL (44-115)
--- OUTSIDE RECORDS SUMMARY | 2024-08-05 17:17 | XMS_ITS ---
Author Organization Unknown TREATMENT PLAN [facility] Start Date Provider Encounter for Check-up [phone] [facility]
== END 2024-07-27 15:41 | DRG 57 ==
LOC: ER 20:05 → 2ND 20:08
PROVIDERS: Nurse Practitioner Family; Physician Assistant; Admitting Provider Student in an Organized Health Care Education/Training Program; Emergency Provider Emergency Medicine; Visit Provider Student in an Organized Health Care Education/Training Program
DX: I69.398 Other sequelae of cerebral infarction (principal); N17.9 Acute kidney failure, unspecified; M62.82 Rhabdomyolysis; D68.9 Coagulation defect, unspecified; I16.0 Hypertensive urgency; F17.210 Nicotine dependence, cigarettes, uncomplicated; I10 Essential (primary) hypertension; R29.6 Repeated falls; Z91.81 History of falling; R26.89 Other abnormalities of gait and mobility; R41.0 Disorientation, unspecified; R53.1 Weakness; E86.0 Dehydration; Z91.148 Patient's other noncompliance with medication regimen for other reason; R50.9 Fever, unspecified; R79.89 Other specified abnormal findings of blood chemistry; D75.1 Secondary polycythemia; N40.0 Benign prostatic hyperplasia without lower urinary tract symptoms; R53.81 Other malaise; Z74.01 Bed confinement status; K26.9 Duodenal ulcer, unspecified as acute or chronic, without hemorrhage or perforation; Z74.1 Need for assistance with personal care
CPT/HCPCS: 36415; 70450; 70496; 70498; 70551; 71045; 71250; 74177; 76770; 80048; 80053; 80061; 81001; 82043; 82140; 82550; 82570; 82607; 82728; 82746; 83036; 83540; 83550; 83735; 83880; 84100; 84145; 84156; 84436; 84443; 84479; 84484; 84540; 84630; 85025; 85044; 85610; 85651; 86140; 86803; 87040; 87389; 87633; 93005; 93306; 97110; 97116; 97163; 97166; 97530; 97535; 99291; J1644; J2543; J7030; J7120; Q9967

== ENCOUNTER 2025-01-28 19:34 | Emergency (ER) | payer MEDICARE, SELFPAY ==
[2025-01-28 19:50] VITALS: BP 197/96; PULSE 51; RESP 18; TEMP 36.6; O2SAT 95; BMI 26.6
--- NOTE | 2025-01-28 19:53 | ED_ITS ---
<Statement entered by Sanya Whittington MD - 01/29/25 01:49> I was consulted by the JUANCHO, and we discussed the complexity of the problems being addressed. I approve the treatment and management plan for this patient's care in the emergency department, thus performing a substantive portion of the medical decision making. Sanya Whittington MD Discharge Plan Disposition Patient Disposition: Home, Self-Care Condition: Good Prescriptions Prescriptions: No Action atorvastatin 40 mg Tablet 40 mg PO HS 30 Days Qty: 30 0RF clopidogrel 75 mg Tablet 75 mg PO DAILY 30 Days Qty: 30 0RF aspirin 81 mg Tablet,Delayed Release (Dr/Ec) 81 mg PO DAILY 30 Days Qty: 30 0RF tamsulosin 0.4 mg Capsule 0.4 mg PO HS 30 Days Qty: 30 0RF pantoprazole 40 mg Tablet,Delayed Release (Dr/Ec) 40 mg PO HS 30 Days Qty: 30 0RF irbesartan 150 mg Tablet 150 mg PO DAILY 30 Days Qty: 30 0RF Referrals Follow up/Referrals: Dirk Darling DO [Primary Care Provider, Family Practice] - See instructions Jorge L,Pierce Larson MD [Referring, Urology] - See instructions Activity Restrictions/Add. Instructions Additional Instructions/Restrictions: Please return to the emergency department with any worsening signs or symptoms. Please follow-up with urologist and your primary care doctor in the upcoming days/weeks. Please monitor for any worsening urinary symptoms. Clinical Impressions Clinical Impression: Enlarged prostate, H/O medication noncompliance, Confusion Instructions Patient Instructions: DI for Urinary Retention in Men Print Language Print Language: Occitan Discharge ED Provider: Sanya Whittington General Adult HPI General Chief complaint: Abdominal Pain Stated complaint: having trouble urination Time Seen by Provider: 01/28/25 19:52 Mode of Arrival: Wheelchair Source of Information: Patient and Significant Other Limitations: Altered Mental Status Description of Symptoms (Recalled from ER Triage Doc. by RN): Pt presents with c/o unable to urinate that was noticed today, pt reports feeling the urge to pee but is unable to get any out. Pt denies any renal history. at the bedside also reports He's been having this thing going on with his throat for awhile now, he coughs but is not able to get his phlem out, but he does smoke alot alot. History of Present Illness HPI narrative: 64-year-old male presents the emergency department accompanied by his for a 1 day history of urinary retention, patient states that he had last urinated yesterday, has had little to no urination today, as well as some constipation, last movement was this morning, however it was quite as formed per usual. Patient is GCS of 14, unsure of chronicity, at the bedside agrees he has some confusion at baseline. Patient denies any fever chills chest pain shortness of breath, does have some cough, this has been chronic for him, denies any overt abdominal pain, denies any nausea vomiting, denies any diarrhea melena hematochezia hematemesis, no hemoptysis, no dysuria, no hematuria, patient is a current everyday smoker, denies any alcohol or drug use. Other past medical history is consistent with prior TIA/CVA, hypertension, polycythemia, asthenia, hyperlipidemia, patient tells me he takes no medications at home, confirms this and tells me he does not like taking medications. He has not taken any of his at home medications to include dual endplate therapy of Plavix and aspirin, statin therapy, as well as others and medical record, for the last 3 to 6 months. Initial triage vitals are notable for bradycardia, and hypertension around 190s systolic, patient does have history of hypertension has not been taking his medication as stated above otherwise unremarkable. Please note that above description of symptoms, in this electronic medical record under categorization of recalled from ER triage doctor by RN are reflective of an initial nursing assessment, however, is not reflective of my full history and physical exam that was personally taken and clarified. Consequentially, this preceding description of symptoms, which may include the patient's categorized chief complaint in the EMR, do not reflect my personal clinical impression, and the ultimate description of history of present illness and patient stated complaints should be deferred to this section of the note. Unless stated otherwise or congruent with this section of the note, additional signs, symptoms, or incongruence should be interpreted as inaccurate with my clinical impression. Onset (ago): day(s) Related Data Previous Rx's ?Medication ?Instructions ?Recorded aspirin 81 mg tablet,delayed 81 mg PO DAILY 30 days #3 0 tabs 07/27/24 release atorvastatin 40 mg tablet 40 mg PO HS 30 days #30 tabs 07/27/24 clopidogrel 75 mg tablet 75 mg PO DAILY 30 days #30 t abs 07/27/24 irbesartan 150 mg tablet 150 mg PO DAILY 30 days #30 tabs 07/27/24 pantoprazole 40 mg tablet,delayed 40 mg PO HS 30 days #30 tabs 07/27/24 release tamsulosin 0.4 mg capsule 0.4 mg PO HS 30 days #30 cap s 07/27/24 Allergies Allergy/AdvReac Type Severity Reaction Status Date / Time No Known Allergies Allergy Verified 07/22/24 16:55 [facility] Disclaimer: The information contained in this section may have been updated after the patient was seen, as this information can be updated by other users. Medical History (Updated 01/28/25 @ 22:26 by BETO Villanueva) No significant past medical history Social History (Updated 07/22/24 @ 22:36 by Arely Fuller RN) Smoking Status: Current every day smoker tobacco type: cigarettes packs per day: 1 pack-years: 30 years smoked: 35 alcohol intake: never current occupational status: unemployed Travel in the last 8 weeks?: None household members: spouse marital status: Have you lived/traveled outside [place] in past 30 days?: No Contact w/someone who lives/traveled outside US past 30 days?: No Exposure to someone with infectious disease in past 14 days?: No Do you have a fever (greater than 100.4 F or 38 C)?: No Have you tested positive for COVID-19?: No Exposed to someone with COVID-19 in past 14 days?: No Do you have a sore throat?: No Do you have a cough?: No Do you have any weakness?: No Do you have any diarrhea?: No Are you experiencing any unusual bleeding?: No Do you have any muscle aches/pain?: No Do you have any abdominal pain?: No Are you experiencing loss of taste or smell?: No Other Medical History Have you received the Flu Vaccine for this season: No Have you received the Pneumonia Vaccine: No ROS Obtained: Yes All systems reviewed & no additional complaints except as documented Physical Exam General General appearance: alert and in no apparent distress Head Head exam: atraumatic and normocephalic Eye Eye exam: Present PERRL and EOMI ENT ENT exam: Present mucous membranes moist Neck Neck exam: Present normal inspection Chest Chest inspection: Present normal inspection and symmetric chest wall rise Respiratory Respiratory exam: Present normal lung sounds bilaterally; Absent respiratory distress Cardiovascular Cardiovascular exam: Present normal rhythm and bradycardia; Absent regular rate Abdominal Exam Abdominal exam: Present soft; Absent tenderness, guarding, rebound or rigidity Extremities Exam Extremities exam: Present normal inspection Neurological Exam Neurological exam: Present alert and other (Oriented to person and place, disoriented about the president and as well as year, oriented to date and time, GCS 14 unsure of chronicity moves extremities to command); Absent oriented X3 Psychiatric Psychiatric exam: Present normal affect Skin Skin exam: Present warm and dry Medical Decision Making Medical Records Medical records reviewed: Yes I reviewed the patient's medical records. Screening: Per USPSTF and CDC recommendations, given the prevalence of disease in our region, it is our hospital?s policy to screen for HIV and viral Hepatitis for all patients aged 18 and over and those with ongoing risk factors. Herbert Inquiry Pt receiving controlled substance: No Herbert was queried for this patient: No Vital Signs: 01/28/25 19:50 01/28/25 21:00 01/28/25 21:06 Temperature 97.9 F Temperature Source Oral Pulse Rate 49 L 45 L Pulse Rate [Radial] 51 L Respiratory Rate 18 13 Blood Pressure 203/106 H 206/104 H Blood Pressure [Right Arm] 197/96 H Blood Pressure Mean [Right Arm] 129 Blood Pressure Position [Right Arm] Sitting 02 Sat by Pulse Oximetry 95 95 97 Oxygen Delivery Method Room Air 01/28/25 21:31 Temperature Temperature Source Pulse Rate 46 L Pulse Rate [Radial] Respiratory Rate 25 H Blood Pressure 207/89 H Blood Pressure [Right Arm] Blood Pressure Mean [Right Arm] Blood Pressure Position [Right Arm] 02 Sat by Pulse Oximetry 97 Oxygen Delivery Method Lab Data Lab results reviewed: Yes I reviewed the patient's lab results. Lab Results 01/28/25 19:50: WBC 9.5, RBC 5.18, Hgb 15.4, Hct 46.0, MCV 88.8, MCH 29.7, MCHC 33.5, RDW 14.2, Plt Count 198, MPV 12.3 H, Neut % (Auto) 61.0, Lymph % (Auto) 27.7, [place] % (Auto) 9.0, Eos % (Auto) 1.5, Baso % (Auto) 0.5, Neut # (Auto) 5.8, Lymph # (Auto) 2.6, [place] # (Auto) 0.9, Eos # (Auto) 0.1, Baso # (Auto) 0.1, PT 12.4, INR 1.13 H, APTT 25.7, Sodium 139, Potassium 4.4, Chloride 104, Carbon Dioxide 25, Anion Gap 14.4, BUN 20, Creatinine 1.10, Estimated Creat Clear 76, Estimated GFR 67, Est GFR ( Amer) 81, Glucose 121 H, Calcium 9.1, Phosphorus 3.2, Magnesium 2.1, Total Bilirubin 0.7, AST 23, ALT 15, Alkaline Phosphatase 69, Troponin I < 0.01, NT-Pro-B Natriuret Pep 651 H, Total Protein 6.6, Albumin 4.2, Globulin 2.4, Albumin/Globulin Ratio 1.8, Lipase 72 01/28/25 20:55: Urine Color Yellow, Urine Appearance Clear, Urine pH 5.5, Ur Specific [place] 1.025, Urine Protein Negative, Urine Glucose (UA) Negative, Urine Ketones Negative, Urine Blood Negative, Urine Nitrate Negative, Urine Bilirubin Negative, Urine Urobilinogen 0.2, Ur Leukocyte Esterase Negative, Urine RBC 10-20, Urine WBC 3-5, Ur Squamous Epith Cells 20-50, Urine Bacteria 2+, Urine Mucus 1+ 01/28/25 21:11: VBG pH 7.42 H, VBG pCO2 41.1, VBG pO2 74.5 H, VBG HCO3 25.8, VBG Total CO2 27.1 H, VBG O2 Saturation 95.7 H, VBG Base Excess 1.3, VBG Lactic Acid 1.5 01/28/25 19:50 01/28/25 19:50 Orders (Tests/Meds): ED MEDICATIONS Generic Name Dose Route Start Last Admin Trade Name Freq PRN Reason Stop Dose Admin Sodium Chloride 10 ml 01/28/25 21:16 01/28/25 21:17 Sodium Chloride 0.9% 10ml Syr (Rad Only) IV 02/27/25 21:15 10 ml NEEDED PRN Administration Maintain IV Site Discontinued Medications Generic Name Dose Route Start Last Admin Trade Name Freq PRN Reason Stop Dose Admin Iopamidol 75 ml 01/28/25 21:16 01/28/25 21:17 Iopamidol-370 (76%);100ml Bottle IV 01/28/25 21:17 75 ml ONCE ONE Administration ORDERS Category Date Time Status CT abdomen pelvis w con Stat Cat Scan 01/28/25 20:[address] head/brain wo con Stat Cat Scan 01/28/25 20:17 Completed Calcium, Ionized Stat Lab 01/28/25 19:50 Received Complete Blood Count Auto Diff Stat Lab 01/28/25 19:50 Completed Comprehensive Metabolic Panel Stat Lab 01/28/25 19:50 Completed Lactic Acid Stat Lab 01/28/25 20:18 Ordered Lipase Stat Lab 01/28/25 19:50 Completed MAG [Magnesium] Stat Lab 01/28/25 19:50 Completed NT Pro Brain Natriuretic Pep. Stat Lab 01/28/25 19:50 Completed PHOS [Phosphorous] Stat Lab 01/28/25 19:50 Completed PT INR [Prothrombin Time INR] Stat Lab 01/28/25 19:50 Completed PTT [Activated Partial Thrombo Time] Stat Lab 01/28/25 19:50 Completed Troponin I Q3H Lab 01/28/25 23:30 Ordered Troponin I Q3H Lab 01/29/25 02:30 Ordered Troponin I Stat Lab 01/28/25 19:50 Completed Urinalysis and Microscopic Stat Lab 01/28/25 20:55 Completed Urine Culture Stat Micro 01/28/25 20:55 Received VBG [Venous Blood Gas] Stat RT 01/28/25 21:11 Completed Medical Decision Narrative: 64-year-old male presents the emergency department with acute urinary retention for 1 day, differential diagnose include but not limited to urinary outflow obstruction, BPH, prostatitis, acute UTI, acute pyelonephritis, constipation, bowel obstruction, electrolyte disturbance, acute kidney injury, hydronephrosis, nephrolithiasis, ureterolithiasis among others. I discussed this patient case with the attending physician Dr. Whittington Will obtain basic laboratory studies, lactic acid level, lipase level, proBNP, PT/INR/PTT, UA, CT head without contrast to be obtained, CT and pelvis with contrast will be obtained bladder scan and EKG will be obtained. Bladder scan obtained per nursing staff only yielded 162 mL. Will straight cath the patient for urinalysis and to relieve any urinary retention CBC unremarkable CMP is notable for hyponatremia at 150, anion gap of 51.5, thus obtain rerun the patient's laboratory studies and go ahead and obtain VBG, magnesium, phosphorus level as well as ionized calcium. Hypocalcemia at 4.7 otherwise unremarkable CMP I was notified by nursing staff at approximately 9:05 PM that the patient's repeat CMP was running, preliminary results show normal sodium level as well as calcium level. I was able to review the patient's repeat CMP, no hyponatremia is noted, normal sodium 139, troponin is within normal limits, proBNP is mildly elevated at 651, lipase the normal limit UA is negative for hematuria negative nitrites, negative leukocyte esterase VBG is notable for pH of 7.42, pO2 was 74.5, CO2 and bicarb within normal limits. PT within normal limits, INR 1.13, PTT within normal limits. 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 Reexamination of the patient approximately 10:04 PM, patient is becoming somewhat agitated, at bedside states that this is his normal, does experiencing some sundowning especially after his strokes. Patient was attempting to urinate with urinal at the bedside, when I am nursing staff witnessed a fall, I was able to catch the patient and assisted him to the floor in a safe position, patient did not strike the head there was able to get up on his own. Discussed all results with the at the bedside. I did offer admission to the and patient at the bedside for agitation/altered mental status, as well as bradycardia unspecified, need for further workup. declined at this time patient declined at this time would like to pursue outpatient treatment. Shared decision-making was utilized, patient's states that this is his baseline especially when the sun goes down he would like to pursue outpatient treatment for this. Of note patient was able to ambulate on affected after his near fall, patient was also able to urinate multiple times in the emergency department without catheterization. I reviewed the patient's CT abdomen pelvis with contrast along the corresponding radiologic report, no acute intra-abdominal or intrapelvic abnormality appreciated, moderate prostatic enlargement no significant bladder distention or hydronephrosis appreciated, small retained left kidney stone. I once again discussed these results with the patient's family member at the bedside, patient's states that this is his baseline, patient states that he will not take any medication for his high blood pressure does have documented history of hypertension, upon chart review patient has had/been hypertensive previously in the emergency department back in June, seems to be around his baseline. Risk outweigh benefits of giving patient IV antihypertensive medication at this time as patient would like to be discharged home to self- care, once again with recommended/offered admission, declined. Shared decision making was utilized. Patient was given strict ED return precautions. Urology to follow-up for BPH. Patient and patient's voiced understanding and agreement with current treatment plan/discharge plan. Critical Care Critical Care Time Critical Care Time: No
--- NOTE | 2025-01-28 20:17 | CT_ITS ---
PROCEDURE INFORMATION: Exam: CT Head Without Contrast Exam date and time: 01/28/2025 9:15 PM Age: 64 years old Clinical indication: Altered mental status/memory loss; Additional info: AMS TECHNIQUE: Imaging protocol: Computed tomography of the head without contrast. Radiation optimization: All CT scans at this facility use at least one of these dose optimization techniques: automated exposure control; mA and/or kV adjustment per patient size (includes targeted exams where dose is matched to clinical indication); or iterative reconstruction. COMPARISON: MR HEAD/BRAIN WO CON 07/23/2024 9:50 AM FINDINGS: Brain: No evidence for intracranial hemorrhage, mass lesions or acute stroke. Intracranial vascular calcifications. Moderate small vessel ischemic change in the periventricular white matter. 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 Multifocal basal ganglia old lacunar infarcts image 3/37. Old left external capsule lacunar infarct image 3/37. Old right external capsule lacunar infarct image 3/39. Old bilateral thalamic lacunar infarcts. Cerebral ventricles: No ventriculomegaly. Pituitary gland and sella: Negative Paranasal sinuses: Visualized sinuses are unremarkable. No fluid levels. Mastoid air cells: Visualized mastoid air cells are well aerated. Orbital cavities: Negative. Bones: Unremarkable. No acute fracture. Soft tissues: Unremarkable. Vasculature: Negative. Other findings: Mild generalized atrophy. IMPRESSION: 1. No evidence for intracranial hemorrhage, mass lesions or acute stroke. 2. Intracranial vascular calcifications. 3. Mild generalized atrophy. 4. Moderate small vessel ischemic change in the periventricular white matter. 5. 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 6. Multifocal basal ganglia old lacunar infarcts image 3/37. 7. Old left external capsule lacunar infarct image 3/37 8. Old right external capsule lacunar infarct image 3/39. 9. Old bilateral thalamic lacunar infarcts.
--- NOTE | 2025-01-28 20:18 | CT_ITS ---
PROCEDURE INFORMATION: Exam: CT Abdomen And Pelvis With Contrast Exam date and time: 01/28/2025 9:19 PM Age: 64 years old Clinical indication: Other: Urinary retention; Abdominal pain; Additional info: Urinary retention, abdominal pain TECHNIQUE: Imaging protocol: Computed tomography of the abdomen and pelvis with contrast. Radiation optimization: All CT scans at this facility use at least one of these dose optimization techniques: automated exposure control; mA and/or kV adjustment per patient size (includes targeted exams where dose is matched to clinical indication); or iterative reconstruction. Contrast material: ISOVUE; Contrast volume: 75 ml; Contrast route: IV; COMPARISON: CT ABDOMEN PELVIS W CON 07/24/2024 2:43 PM FINDINGS: Lungs: There are pleural-based calcifications in the posterior lower left chest with associated scarring again demonstrated. No acute basilar infiltrate is appreciated. Liver: Few calcified granulomata noted within the liver. The liver is otherwise unremarkable. Gallbladder and biliary ducts: Partially contracted gallbladder. No calcified gallstones appreciated. Pancreas: Normal. No ductal dilation. Spleen: Normal-size spleen with a calcified granuloma present. Adrenal glands: Normal. No mass. Kidneys and ureters: Normal-size kidneys with symmetrical enhancement. Small retained stone mid left kidney. No hydronephrosis or ureteral stone appreciated. Stomach and bowel: There is no distension of the stomach or gastric wall abnormality appreciated. The wall thickening and inflammation involving the pylorus and proximal duodenum on the previous examination has resolved. There is no small bowel dilatation identified. There is distal small bowel feces which can be seen with a slow small bowel transit time. There is stool and gas present within the colon. A segment of the sigmoid colon at the junction with the descending segment again extends into an approximate 7.5 x 5.5 cm left inguinal hernia that measures at least 10 cm in height and extends into the upper left scrotum. The appearance is similar to the previous examination. There are left-sided diverticuli. There is no acute diverticulitis or evidence of obstruction within the hernia. Appendix: Normal appendix right mid abdomen that is directed superiorly. Intraperitoneal space: Unremarkable. No free air. No significant fluid collection. Vasculature: Moderate mixed plaque distal abdominal aorta with no focal stenosis or aneurysm. Tortuous iliac arteries that enhance. Lymph nodes: Unremarkable. No enlarged lymph nodes. Urinary bladder: No significant bladder distension. Questionable tiny calcification of the posterior wall of the bladder to the right of the midline. Reproductive: Moderate prostate enlargement with a few prostate calcifications present. Bones/joints: Unremarkable. No acute fracture. Soft tissues: Left inguinal hernia containing a segment of sigmoid colon that is unobstructed which is discussed above. IMPRESSION: 1. No acute intra-abdominal or intrapelvic abnormality appreciated. 2. Moderate prostate enlargement. No significant bladder distension or hydronephrosis appreciated. Small retained stone left kidney. 3. Other chronic findings which are discussed above.
[2025-01-28 20:27] LABS: Hematocrit 46.0 % (42.0-52.0); Hemoglobin 15.4 g/dL (14.1-18.0); Immature Granulocytes % 0.3 %; Mean Corpuscular HGB Conc 33.5 g/dL (31.8-35.4); Mean Corpuscular Hemoglobin 29.7 pg (27.0-31.2); Mean Corpuscular Volume 88.8 fl (80-94); Nucleated Red Blood Cells % 0 %; Platelet Count 198 K/mm3 (142-424); Red Blood Count 5.18 M/mm3 (4.60-6.20); Red Cell Distribution Width-SD 45.9 fL; White Blood Count 9.5 K/mm3 (4.8-10.8)
--- NOTE | 2025-01-28 20:40 | ECG_ITS ---
APPROVED REPORT Exam: Resting ECG HR:44 bpm ECG Measurements Heart Rate 44 AXES WA 141 P 70 QRSd 82 QRS 66 QT 451 T 5 QTc 400 Conclusion SINUS BRADYCARDIA WITH OCCASIONAL SUPRAVENTRICULAR PREMATURE COMPLEXES ANTEROSEPTAL MYOCARDIAL INFARCTION , OF INDETERMINATE AGE [40+ ms Q WAVE IN V1-V4] ABNORMAL ECG UNCONFIRMED REPORT Sinus bradycardia. No ST elevation or depression. QTc normal at 400 Electronically signed by : REJI BYRD, 01/28/2025 23:17:23
--- NOTE | 2025-01-28 20:56 | PC.NURSE ---
critical lab called from MD caitie notified
[2025-01-28 20:59] LABS: Microscopic, Urine URINE MICROSCOPIC (MICROSCOPIC)
[2025-01-28 21:00] VITALS: BP 203/106; PULSE 49; O2SAT 95
[2025-01-28 21:01] LABS: Bilirubin,Urine Negative (Negative); Color,Urine YELLOW (Yellow); Glucose,Urine (UA) Negative (Negative); Ketones,Urine Negative (Negative); Leukocyte Esterase,Urine Negative (Negative); PH,Urine 5.5 (5.0-8.5); Protein,Urine Negative (Negative); Specific Gravity, Urine 1.025 (1.005-1.030); Urobilinogen,Urine 0.2 EU/dl (0.2)
[2025-01-28 21:04] LABS: Sodium 139 mmol/L (136-145)
[2025-01-28 21:05] LABS: Potassium 4.4 mmoL/L (3.5-5.1)
--- NOTE | 2025-01-28 21:05 | PC.NURSE ---
spoke with lab regarding chemistry. new values entered and corrected
[2025-01-28 21:06] VITALS: BP 206/104; PULSE 45; RESP 13; O2SAT 97
[2025-01-28 21:06] LABS: Anion Gap 14.4 mEq/L (5-15); Blood Urea Nitrogen 20 mg/dl (9-20); Carbon Dioxide 25 mmol/L (22.0-30.0); Chloride 104 mmol/L (98-107)
[2025-01-28 21:07] LABS: Creatinine Clearance Estimated 76 mL/min (50-200); Creatinine,Serum 1.10 mg/dl (0.66-1.25); Estimated Glomerular Filt Rate 67 ml/min (>60); GFR (African American) 81 ML/MIN (>60); Glucose 121 mg/dl (74-100)
[2025-01-28 21:08] LABS: Bilirubin,Total 0.7 mg/dl (0.2-1.3); Calcium 9.1 mg/dl (8.4-10.2)
[2025-01-28 21:09] LABS: Alanine Aminotransferase 15 U/L (12-78); Aspartate Amino Transferase 23 U/L (17-59); Total Protein,Serum 6.6 g/dl (6.3-8.2)
[2025-01-28 21:10] LABS: Albumin Level 4.2 g/dl (3.5-5.0); Albumin/Globulin Ratio 1.8 (1.1-1.8); Alkaline Phosphatase 69 U/L (38-126); Globulin 2.4 g/dL (1.3-3.2)
[2025-01-28 21:11] LABS: Lipase 72 U/L (23-300)
--- NOTE | 2025-01-28 21:11 | PC.NURSE ---
This RN check's patient's BP with reading 206/104. Family at the bedside confirms that patient does have DX of HTN but refuses to take medication. Provider aware
[2025-01-28 21:13] LABS: NT Pro Brain Natriuretic Pep. 651 pg/mL (0-125); Troponin I < 0.01 ng/ml (0.00-0.034)
[2025-01-28 21:16] LABS: Lactate Venous 1.5 mmol/L (0.4-2.0); VBG HCO3 25.8 mmol/L (23-30); VBG PCO2 41.1 mmol/L (35-51); VBG PH 7.42 mmol/L (7.31-7.41); VBG PO2 74.5 mmol/L (28-40)
[2025-01-28 21:17] LABS: Activated Partial Thrombo Time 25.7 seconds (22.8-30.6); INR 1.13 (0.9-1.1); Prothrombin Time 12.4 seconds (10.1-12.5)
[2025-01-28] MEDS: SODIUM CHLORIDE 0.9% 10ML SYR (RAD ONLY) 10 ML IV (21:17)
[2025-01-28] MEDS: IOPAMIDOL-370 (76%);100ML BOTTLE 75 ML IV (21:17)
[2025-01-28 21:24] LABS: Magnesium 2.1 mg/dl (1.6-2.3); Phosphorous 3.2 mg/dl (2.5-4.5)
[2025-01-28 21:31] VITALS: BP 207/89; PULSE 46; RESP 25; O2SAT 97
[2025-01-28 21:34] LABS: Bacteria,Urine 2+ /lpf; Mucus,Urine 1+ /lpf; Squamous Epithelial Cell,Urine 20-50 #/hpf (0-5)
[2025-01-28 22:33] VITALS: BP 187/100; PULSE 47; RESP 20; TEMP 36.6; O2SAT 98
[2025-01-31 13:35] LABS: Calcium, Ionized 5.1 mg/dL (4.5-5.6)
== END 2025-01-28 22:35 | disposition home or self-care (01) ==
PROVIDERS: Physician Assistant; Emergency Provider Student in an Organized Health Care Education/Training Program; PCP Internal Medicine
DX: R41.0 Disorientation, unspecified (principal); R00.1 Bradycardia, unspecified; R45.1 Restlessness and agitation; N40.0 Benign prostatic hyperplasia without lower urinary tract symptoms; R33.9 Retention of urine, unspecified; F17.210 Nicotine dependence, cigarettes, uncomplicated; I10 Essential (primary) hypertension; Z86.73 Personal history of transient ischemic attack (TIA), and cerebral infarction without residual deficits
CPT/HCPCS: 51798; 70450; 74177; 80053; 81001; 82330; 82803; 83690; 83735; 83880; 84100; 84484; 85025; 85610; 85730; 87086; 93005; 99285; Q9967